=== PATIENT | female | born 1930 | race Two or more races ===

== ENCOUNTER 2017-11-17 10:39 | Inpatient (IN) | payer MEDICAID, MEDICARE ==
[~2017-11-17] VITALS: Ht 154.9 cm; Wt 68.0 kg
[~2017-11-17 10:39] MED LIST: CEPH500C PO; FERR325T14 PO; HYDR-2758 PO; PRED-220 PO; WARF-78 PO
[2017-11-17] MEDS ORDERED: IV NORMAL SALINE 1000ML BAG 1,000 ML IV ONE ×2 (11:00→13:00)
[2017-11-17] MEDS ORDERED: PANTOPRAZOLE IV PUSH 40 MG VIAL. IVP ONE (11:00)
[2017-11-17] MEDS ORDERED: DICYCLOMINE HCL 10 MG CAPSULE PO ONE (11:00)
[2017-11-17] MEDS ORDERED: ONDANSETRON PF 4 MG/2 ML VIAL. IV ONE (11:00)
[2017-11-17 11:26] LABS: BASO % 0 % (0-3); EOS % 0 % (0-3); HEMATOCRIT 46.4 % (36.0-47.0); LYMPH # 0.6 x10^3/uL (1.0-4.8); LYMPH % 12 % (24-48); MEAN CORPUSCULAR HEMOGLOBIN 31 pg (25-35); MEAN CORPUSCULAR HGB CONC 34 g/dL (31-37); MEAN CORPUSCULAR VOLUME 90 fL (79-100); MONO # 0.6 x10^3/uL (0.0-1.1); MONO % 12 % (0-9); NEUT # 3.8 x10^3uL (1.8-7.7); NEUT % 76 % (31-73); PLATELET COUNT 286 x10^3/uL (140-400); RED BLOOD COUNT 5.13 x10^6/uL (3.50-5.40); RED CELL DISTRIBUTION WIDTH 15.6 % (11.5-14.5)
[2017-11-17 11:28] LABS: BILIRUBIN,URINE SMALL (NEG); CLARITY,URINE CLEAR; COLOR,URINE AMBER; NITRITE,URINE POSITIVE (NEG); PH,URINE 5.5; PROTEIN,URINE 100 mg/dL (NEG-TRACE); UROBILINOGEN,URINE 0.2 mg/dL (0.2 mg/dL)
[2017-11-17 11:34] LABS: CALCIUM 10.1 mg/dL (8.5-10.1); CREATININE 1.5 mg/dL (0.6-1.0); GFR 32.8
[2017-11-17 11:34] LABS: BARBITURATES NEG (NEG); BENZODIAZEPINES NEG (NEG); CANNABINOIDS NEG (NEG); COCAINE NEG (NEG); METHADONE NEG (NEG); OPIATES NEG (NEG); PHENCYCLIDINE NEG (NEG)
[2017-11-17 11:35] LABS: AMPHETAMINE/METHAMPHETAMINE NEG (NEG)
[2017-11-17 11:36] LABS: SQUAMOUS EPITHELIAL CELL,UR OCC /LPF
[2017-11-17 11:37] LABS: BACTERIA,URINE MANY /HPF (0-FEW); WBC,URINE OCC /HPF (0-4)
--- NOTE | 2017-11-17 11:39 | PHYS DOC ---
Past Medical History Past Medical History: Heart Disease, [place], Other Additional Past Medical Histor: Rheumatoid arthritis Past Surgical History: Hysterectomy, Other Additional Past Surgical Histo: bladder lift Alcohol Use: None Drug Use: None Adult General Chief Complaint Chief Complaint: NAUSEA/VOMITING/DIARRHA HPI HPI Patient is a 87 year old female with history of [place], heart disease, who presents today complaining of generalized 8 out of 10 intermittent abdominal pain described as cramping with nausea and vomiting for 5 days. Patient denies any fever. Denies any hematemesis or melena. Denies any diarrhea. Last bowel movement was today and normal. Family is present and states this patient receives a lot of cooked meals from family and friends but she never stools the meals in the appropriate ways, family believes she could've eaten bad food. PCP Dr. Hassan Review of Systems Review of Systems Constitutional: Denies fever or chills [] Eyes: Denies change in visual acuity, redness, or eye pain [] HENT: Denies nasal congestion or sore throat [] Respiratory: Denies cough or shortness of breath [] Cardiovascular: No additional information not addressed in HPI [] GI: Reports generalized abdominal pain with nausea and vomiting, denies, bloody stools or diarrhea [] : Denies dysuria or hematuria [] Musculoskeletal: Denies back pain or joint pain [] Integument: Denies rash or skin lesions [] Neurologic: Denies headache, focal weakness or sensory changes [] All other systems were reviewed and found to be within normal limits, except as documented in this note. Current Medications Current Medications Current Medications Medications (Trade) Dose Ordered Sig/Willard Start Time Stop Time Status Last Admin Dose Admin Ceftriaxone Sodium 50 ml @ 100 mls/hr 1X ONCE 11/17/17 12:00 11/17/17 12:29 DC 11/17/17 12:03 100 MLS/HR Dicyclomine HCl (Bentyl) 20 mg 1X ONCE 11/17/17 11:00 11/17/17 11:02 DC 11/17/17 11:56 20 MG Ondansetron HCl (Zofran) 4 mg 1X ONCE 11/17/17 11:00 11/17/17 11:02 DC 11/17/17 11:53 4 MG Pantoprazole Sodium (PROTONIX VIAL for IV PUSH) 40 mg 1X ONCE 11/17/17 11:00 11/17/17 11:02 DC 11/17/17 11:56 40 MG Sodium Chloride 1,000 ml @ 1,000 mls/hr 1X ONCE 11/17/17 11:00 11/17/17 11:59 DC 11/17/17 11:51 1,000 MLS/HR Allergies Allergies Allergies Coded Allergies Type Severity Reaction Last Updated Verified celecoxib Allergy Severe Hives 05/13/13 Yes Sulfa (Sulfonamide Antibiotics) Allergy Intermediate Rash 05/22/14 Yes Physical Exam Physical Exam Constitutional: Well developed, well nourished, no acute distress, non-toxic appearance. [] HENT: Normocephalic, atraumatic, bilateral external ears normal, oropharynx moist, no oral exudates, nose normal. [] Eyes: PERRLA, EOMI, conjunctiva normal, no discharge. [] Neck: Normal range of motion, no tenderness, supple, no stridor. [] Cardiovascular:Heart rate regular rhythm, no murmur [] Lungs & Thorax: Bilateral breath sounds clear to auscultation [] Abdomen: Bowel sounds normal, soft, diffuse tenderness throughout the abdomen, no specific point tenderness, no masses, no pulsatile masses. [] Skin: Warm, dry, no erythema, no rash. [] Back: No tenderness, no CVA tenderness. [] Extremities: No tenderness, no cyanosis, no clubbing, ROM intact, no edema. [] Neurologic: Alert and oriented X 3, normal motor function, normal sensory function, no focal deficits noted. [] Psychologic: Affect normal, judgement normal, mood normal. [] Current Patient Data Vital Signs Vital Signs Date Time Temp Pulse Resp B/P (MAP) Pulse Ox O2 Delivery O2 Flow Rate FiO2 11/17/17 10:42 97.8 100 18 113/77 (89) 98 Room Air 97.8 Lab Values Laboratory Tests Test 11/17/17 11:00 11/17/17 11:10 White Blood Count 5.0 x10^3/uL (4.0-11.0) Red Blood Count 5.13 x10^6/uL (3.50-5.40) Hemoglobin 16.0 g/dL (12.0-15.5) H Hematocrit 46.4 % (36.0-47.0) Mean Corpuscular Volume 90 fL (79-100) Mean Corpuscular Hemoglobin 31 pg (25-35) Mean Corpuscular Hemoglobin Concent 34 g/dL (31-37) Red Cell Distribution Width 15.6 % (11.5-14.5) H Platelet Count 286 x10^3/uL (140-400) Neutrophils (%) (Auto) 76 % (31-73) H Lymphocytes (%) (Auto) 12 % (24-48) L Monocytes (%) (Auto) 12 % (0-9) H Eosinophils (%) (Auto) 0 % (0-3) Basophils (%) (Auto) 0 % (0-3) Neutrophils # (Auto) 3.8 x10^3uL (1.8-7.7) Lymphocytes # (Auto) 0.6 x10^3/uL (1.0-4.8) L Monocytes # (Auto) 0.6 x10^3/uL (0.0-1.1) Eosinophils # (Auto) 0.0 x10^3/uL (0.0-0.7) Basophils # (Auto) 0.0 x10^3/uL (0.0-0.2) Sodium Level 134 mmol/L (136-145) L Potassium Level 4.0 mmol/L (3.5-5.1) Chloride Level 96 mmol/L (98-107) L Carbon Dioxide Level 24 mmol/L (21-32) Anion Gap 14 (6-14) Blood Urea Nitrogen 37 mg/dL (7-20) H Creatinine 1.5 mg/dL (0.6-1.0) H Estimated GFR (Cockcroft-Gault) 32.8 BUN/Creatinine Ratio 25 (6-20) H Glucose Level 126 mg/dL (70-99) H Calcium Level 10.1 mg/dL (8.5-10.1) Magnesium Level 2.4 mg/dL (1.8-2.4) Total Bilirubin 1.2 mg/dL (0.2-1.0) H Aspartate Amino Transferase (AST) 23 U/L (15-37) Alanine Aminotransferase (ALT) 16 U/L (14-59) Alkaline Phosphatase 122 U/L (46-116) H Creatine Kinase 61 U/L (26-192) Creatine Kinase MB (Mass) 1.7 ng/mL (0.0-3.6) Creatine Kinase MB Relative Index % (0-4) Troponin I Quantitative 0.198 ng/mL (0.000-0.055) GT-Iwy-D-Type Natriuretic Peptide 8692 pg/mL (0-449) H Total Protein 8.0 g/dL (6.4-8.2) Albumin 4.4 g/dL (3.4-5.0) Albumin/Globulin Ratio 1.2 (1.0-1.7) Lipase 159 U/L (73-393) Urine Collection Type U cath Urine Color Blanka Urine Clarity Clear Urine pH 5.5 Urine Specific [place] 1.020 Urine Protein 100 mg/dL (NEG-TRACE) Urine Glucose (UA) Negative mg/dL (NEG) Urine Ketones (Stick) 15 mg/dL (NEG) Urine Blood Moderate (NEG) Urine Nitrite Positive (NEG) Urine Bilirubin Small (NEG) Urine Urobilinogen Dipstick 0.2 mg/dL (0.2 mg/dL) Urine Leukocyte Esterase Negative (NEG) Urine RBC 1-2 /HPF (0-2) Urine WBC Occ /HPF (0-4) Urine Squamous Epithelial Cells Occ /LPF Urine Bacteria Many /HPF (0-FEW) Urine Opiates Screen Neg (NEG) Urine Methadone Screen Neg (NEG) Urine Barbiturates Neg (NEG) Urine Phencyclidine Screen Neg (NEG) Urine Amphetamine/Methamphetamine Neg (NEG) Urine Benzodiazepines Screen Neg (NEG) Urine Cocaine Screen Neg (NEG) Urine Cannabinoids Screen Neg (NEG) Urine Ethyl Alcohol Neg (NEG) Laboratory Tests 11/17/17 11:00 Laboratory Tests 11/17/17 11:00 EKG EKG 11:[address] Milan sinus rhythm HR 89 no STEMI[] Radiology/Procedures Radiology/Procedures []PROCEDURE: ACUTE ABDOMEN SERIES EXAM: Frontal view of the chest, AP views of the abdomen in upright and supine positions. CLINICAL INDICATION: N,V,D X3 DAYS. OVERALL WEAKNESS COMPARISON: None. FINDINGS and IMPRESSION: The heart is not enlarged. Mediastinal and hilar contours are normal. No focal parenchymal airspace opacity. No pleural effusion or pneumothorax. Hiatal hernia is seen. Advanced bilateral glenohumeral joint degenerative change. Dilation of the small bowel measures up to 4.8 cm which may be seen with small bowel obstruction. Scattered pelvic surgical clips are seen. No abnormal soft tissue mass effect. No suspicious calcifications are seen. No free intraperitoneal gas. Electronically signed by: Gabe Schwarz MD (11/17/2017 12:07 PM) [facility] DICTATED and SIGNED BY: GABE SCHWARZ MD DATE: 11/17/17 1208 Course & Med Decision Making Course & Med Decision Making Pertinent Labs and Imaging studies reviewed. (See chart for details) This is a 87-year-old female patient presented to the ED today with abdominal pain, nausea vomiting that began 5 days ago. CBC with normal WBC, CMP with creatinine of 1.5 BUN of 37 troponin 0.198, + UTI 12:[address] Brice concerning patient's elevated troponin. Her troponin has been elevated since 2013 and family states they just monitor it. EKG is normal. Acute abdominal series noted for SBO 12:[address] Dejesus general surgery he will f/u with patient 12:[address] Hassan he accepted patient for admission Patient has not vomited since arrival to the Ed. NG tube placed. Admitted in stable condition. Dragon Disclaimer Dragon Disclaimer This electronic medical record was generated, in whole or in part, using a voice recognition dictation system. Departure Departure Impression: Primary Impression: Small bowel obstruction Additional Impressions: Non-ST elevation myocardial infarction (NSTEMI) UTI (urinary tract infection) Disposition: ADMITTED INPATIENT Condition: STABLE Referrals: WANDA HASSAN MD (PCP) Problem Qualifiers Additional Impressions: UTI (urinary tract infection) Urinary tract infection type: site unspecified Hematuria presence: without hematuria Qualified Codes: N39.0 - Urinary tract infection, site not specified MAEVE RICKS REVIVAL CLERK Nov 17, 2017 11:39
[2017-11-17 11:43] LABS: ALBUMIN 4.4 g/dL (3.4-5.0); ALBUMIN/GLOBULIN RATIO 1.2 (1.0-1.7); MAGNESIUM 2.4 mg/dL (1.8-2.4); TOTAL BILIRUBIN 1.2 mg/dL (0.2-1.0)
[2017-11-17 11:48] LABS: CREATINE KINASE 61 U/L (26-192)
--- NOTE | 2017-11-17 12:10 | RAD ---
EXAM: Frontal view of the chest, AP views of the abdomen in upright and supine positions. CLINICAL INDICATION: N,V,D X3 DAYS. OVERALL WEAKNESS COMPARISON: None. FINDINGS and IMPRESSION: The heart is not enlarged. Mediastinal and hilar contours are normal. No focal parenchymal airspace opacity. No pleural effusion or pneumothorax. Hiatal hernia is seen. Advanced bilateral glenohumeral joint degenerative change. Dilation of the small bowel measures up to 4.8 cm which may be seen with small bowel obstruction. Scattered pelvic surgical clips are seen. No abnormal soft tissue mass effect. No suspicious calcifications are seen. No free intraperitoneal gas. Electronically signed by: Gabe Chaudhry MD (11/17/2017 12:07 PM) [facility]
--- NOTE | 2017-11-17 12:12 | EKG ---
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
--- NOTE | 2017-11-17 12:13 | RAD ---
EXAM: AP pelvis, AP and crosstable lateral views of the left hip DATE: 11/17/2017 11:43 AM INDICATION: LEFT HIP PAIN X1 MONTH AFTER FALL COMPARISON: No Prior FINDINGS/ IMPRESSION: No evidence of acute fracture or dislocation. Decreased bone mineral density. Mild medial left hip joint space narrowing. Right hip joint osteoarthritis with flattening/remodeling of the femoral head Surgical clips project over the pelvis. Lower lumbar spine degenerative changes are noted. Electronically signed by: Gabe Chaudhry MD (11/17/2017 12:09 PM) [facility] [place]
[2017-11-17] MEDS ORDERED: ONDANSETRON PF 4 MG/2 ML VIAL. IV PRN (13:00)
[2017-11-17] MEDS ORDERED: BENZOCAINE ONE 20% MUCOSAL SPRAY. MM ×2 (13:15→16:00)
--- NOTE | 2017-11-17 13:22 | RAD ---
EXAM: CT Abdomen and Pelvis without IV contrast CLINICAL HISTORY: nausea, vomiting. possible SBO on prior radiograph COMPARISON: Radiographs 11/17/2017 TECHNIQUE: Helical CT of the abdomen and pelvis without intravenous contrast. Oral contrast was administered. Axial, coronal and sagittal reformatted images were generated. PQRS compliance statement - One or more of the following individualized dose reduction techniques were utilized for this study: 1. Automated exposure control 2. Adjustment of the mA and/or kV according to patient size 3. Use of iterative reconstruction technique FINDINGS: Lack of intravenous contrast limits evaluation of solid organs, vasculature, and lymph nodes. Lower chest: Lung bases are clear. Large hiatal hernia. Artery calcifications are seen. Abdomen and Pelvis: No focal liver lesion. Calcified gallstones are seen within the gallbladder. Spleen is unremarkable. Adrenal glands are normal. No definite renal lesion is seen. No hydronephrosis. No biliary ductal dilatation. There is aneurysmal dilatation of the infrarenal aorta measuring 4.2 cm. Atherosclerotic calcifications are seen. There is dilation of the small bowel measuring up to 3.8 cm. There is a transition point in the right lower quadrant beyond which the small bowel is decompressed. Mild colonic stool content. No abdominal or pelvic ascites. No abdominal or pelvic lymphadenopathy. There has been a hysterectomy. There is distention of the right iliopsoas bursa with small right hip joint effusion. Fatty atrophy of the left gluteus medius minimus and medius. Bones: Right hip joint osteoarthritis. Decreased bone mineral density. Degenerative changes of the lower lumbar spine are seen. IMPRESSION: 1. Small bowel obstruction to a transition point in the distal small bowel within the right lower quadrant. 2. Aneurysmal dilatation of the infrarenal abdominal aorta. 3. Calcified gallstones are seen. 4. Large hiatal hernia. Electronically signed by: Gabe Chaudhry MD (11/17/2017 1:18 PM) [facility]
[2017-11-17] MEDS: MORPHINE SULFATE 4 MG/ML VIAL. IV PRN ×2 (13:23→21:43)
--- NOTE | 2017-11-17 14:17 | RAD ---
EXAM: Supine AP view of the abdomen DATE: 11/17/2017 2:00 PM INDICATION: VERIFY NG TUBE COMPARISON: No Prior FINDINGS: The enteric tube tip is seen at the level of the mid thorax. This is approximately 16 cm from the gastroesophageal junction. Dilated loops of small bowel are seen. Hiatal hernia is seen. Dilated loops of small bowel are again seen, better delineated on prior CT. IMPRESSION: 1. NG tube tip projects at the level of the mid thorax. 2. Dilated small bowel loops from known small bowel obstruction. Electronically signed by: Gabe Chaudhry MD (11/17/2017 2:14 PM) [facility]
[2017-11-17 15:00] VITALS: BP 137/79
[2017-11-17 19:00] VITALS: BP 106/58
--- NOTE | 2017-11-17 21:26 | RAD ---
Indication: NG tube placement. TECHNIQUE: Single AP upright view of the abdomen COMPARISON: Study from the same day earlier FINDINGS: Large sliding hiatal hernia. Heart is normal in size. Interval placement of NG tube with its tip in the herniated stomach likely in the distal stomach although this remains above the level of diaphragm. Multiple dilated loops of small bowel in the left upper quadrant. Lungs are clear. No evidence of pneumoperitoneum. Mild scoliotic thoracal lumbar spine. IMPRESSION: 1. NG tube with its tip most likely in the distal aspect of the herniated stomach although the tip remains above the level of diaphragm. The NG tube is not follow-up the course of the left mainstem bronchus to suggest intrabronchial placement. Further advancement recommended. 2. Dilated loops of small bowel in the left upper quadrant suggests ileus or obstruction.. Electronically signed by: Kun Leos DO (11/17/2017 9:22 PM) [facility]
[2017-11-17 23:00] VITALS: BP 104/55
[2017-11-18] VITALS (8 sets, daily range): BP systolic 126–193; BP diastolic 76–100
[2017-11-18] MEDS: MORPHINE SULFATE 4 MG/ML VIAL. IV PRN (02:31)
[2017-11-18 05:42] LABS: BASO % 1 % (0-3); EOS % 1 % (0-3); HEMOGLOBIN 13.8 g/dL (12.0-15.5); LYMPH # 0.4 x10^3/uL (1.0-4.8); LYMPH % 13 % (24-48); MEAN CORPUSCULAR HEMOGLOBIN 31 pg (25-35); MEAN CORPUSCULAR HGB CONC 34 g/dL (31-37); MEAN CORPUSCULAR VOLUME 93 fL (79-100); MONO # 0.4 x10^3/uL (0.0-1.1); MONO % 12 % (0-9); NEUT # 2.5 x10^3uL (1.8-7.7); NEUT % 73 % (31-73); PLATELET COUNT 216 x10^3/uL (140-400); RED BLOOD COUNT 4.43 x10^6/uL (3.50-5.40); RED CELL DISTRIBUTION WIDTH 16.4 % (11.5-14.5); WHITE BLOOD COUNT 3.4 x10^3/uL (4.0-11.0)
[2017-11-18 06:07] LABS: ALBUMIN 3.3 g/dL (3.4-5.0); CALCIUM 8.3 mg/dL (8.5-10.1); GFR 23.5; POTASSIUM 3.7 mmol/L (3.5-5.1); TOTAL BILIRUBIN 0.7 mg/dL (0.2-1.0); TOTAL PROTEIN 6.5 g/dL (6.4-8.2)
[2017-11-18 07:47] LABS: % BANDS 29 % (0-9); % LYMPHS 18 % (24-48); % MONOS 12 % (0-10); % MYELOS 1 % (0-0); PLT ESTIMATE ADEQUATE (ADEQUATE)
[2017-11-18 07:48] LABS: % SEGS 40 % (35-66); ANISOCYTOSIS SLIGHT; OVALOCYTES FEW
[2017-11-18] MEDS ORDERED: IOHEXOL 300 MG/ML 100ML VIAL. PO ONE (08:15)
[2017-11-18] MEDS ORDERED: CONTRAST GIVEN. MC PRN (08:15)
--- NOTE | 2017-11-18 08:26 | PDOC2 ---
THIEN MENJIVAR INCLUSION MANAGER 11/18/17 0826: CONSULT Date of Consult Date of Consult DATE: 11/18/17 TIME: 08:22 Reason for Consult Reason for Consult: sbo Referring Physician Referring Physician: er Identification/Chief Complaint Chief Complaint abdominal pain Source Source: Chart review, Patient History of Present Illness Reason for Visit: 1 week hx of abdominal pain, nausea and emesis. + constipation. Pain is across lower abdomen. Reports no flatus today Past Medical History Cardiovascular: CAD, ID CENTRAL NERVOUS SYSTEM: Other Musculoskeletal: Other Rheumatologic: Rheumatoid arthritis Past Surgical History Past Surgical History: Cholecystectomy, Hysterectomy, Other (bladder lift) Family History Family History: Coronary Artery Disease, Other (noncontributory ) Social History No ALCOHOL: none Drugs: None Lives: Alone Current Problem List Problem List Problems Medical Problems: (1) Non-ST elevation myocardial infarction (NSTEMI) Status: Acute (2) UTI (urinary tract infection) Status: Acute Current Medications Current Medications Current Medications Dicyclomine HCl (Bentyl) 20 mg 1X ONCE PO Last administered on 11/17/17at 11:56 ; Start 11/17/17 at 11:00; Stop 11/17/17 at 11:02; Status DC Pantoprazole Sodium (PROTONIX VIAL for IV PUSH) 40 mg 1X ONCE IVP Last administered on 11/17/17at 11:56; Start 11/17/17 at 11:00; Stop 11/17/17 at 11:02; Status DC Sodium Chloride 1,000 ml @ 1,000 mls/hr 1X ONCE IV Last administered on at 11:51; Start 11/17/17 at 11:00; Stop 11/17/17 at 11:59; Status DC Ondansetron HCl (Zofran) 4 mg 1X ONCE IV Last administered on 11/17/17at 11:53; Start 11/17/17 at 11:00; Stop 11/17/17 at 11:02; Status DC Ceftriaxone Sodium 50 ml @ 100 mls/hr 1X ONCE IV Last administered on at 12:03; Start 11/17/17 at 12:00; Stop 11/17/17 at 12:29; Status DC Ondansetron HCl (Zofran) 4 mg PRN Q8HRS PRN IV NAUSEA/VOMITING; Start 11/17/17 at 13:00; Stop 11/18/17 at 12:59 Morphine Sulfate (Morphine Sulfate) 4 mg PRN Q2HR PRN IV PAIN Last administered on 11/18/17at 02:31; Start 11/17/17 at 13:00; Stop 11/18/17 at 12:59 Sodium Chloride 1,000 ml @ 75 mls/hr 1X ONCE IV Last administered on at 15:51; Start 11/17/17 at 13:00; Stop 11/18/17 at 02:19; Status DC Prochlorperazine Edisylate (Compazine) 10 mg PRN TID PRN IV NAUSEA; Start at 13:00 Benzocaine (Hurricaine One) 1 spray 1X ONCE MM Last administered on 11/17/17at 13:19; Start 11/17/17 at 13:15; Stop 11/17/17 at 13:16; Status DC Benzocaine (Hurricaine One) 1 spray 1X ONCE MM Last administered on 11/17/17at 16:23; Start 11/17/17 at 16:00; Stop 11/17/17 at 16:01; Status DC Iohexol (Omnipaque 300 Mg/ml) 400 ml 1X ONCE PO ; Start 11/18/17 at 08:15; Stop 11/18/17 at 08:16; Status DC Info (CONTRAST GIVEN -- Rx MONITORING) 1 each PRN DAILY PRN MC SEE COMMENTS; Start 11/18/17 at 08:15; Stop 11/20/17 at 08:14 Active Scripts Active Allergies Allergies: Coded Allergies: celecoxib (Verified Allergy, Severe, Hives, 05/13/13) Pt stated she got red hives upon taking this medication Sulfa (Sulfonamide Antibiotics) (Verified Allergy, Intermediate, Rash, ) ROS General: No: Chills, Other (fevers) PSYCHOLOGICAL ROS: No: Anxiety, Depression Eyes: No Blurry vision, No Double vision HEENT: No: Heacaches, Sore Throat Hematological and Lymphatic: No: Bleeding Problems, Blood Clots Respiratory: No: Cough, Shortness of breath Cardiovascular: No Chest Pain, No Palpitations Gastrointestinal: Yes Other (see hpi) Genitourinary: No Dysuria, No Hematuria Musculoskeletal: No Joint Pain, No Muscle Pain Neurological: No Confusion, No Impaired Coord/balance Skin: Yes Rash; No Pruritus Physical Exam General: Alert, Oriented X3, Cooperative, No acute distress HEENT: PERRLA, Mucous membr. moist/pink Lungs: Clear to auscultation, Normal air movement Heart: Regular rate, Normal S1, Normal S2, No murmurs Abdomen: Soft, Other (TTP lower abdomen, low pelvic scar noted ) Extremities: No clubbing, No cyanosis Skin: No rashes, No breakdown Neuro: Normal speech, Sensation intact Psych/Mental Status: Mental status NL, Mood NL MUSCULOSKELETAL: No deformity, No swelling Vitals VITALS Vital Signs Date Time Temp Pulse Resp B/P (MAP) Pulse Ox O2 Delivery O2 Flow Rate FiO2 11/18/17 07:00 97.7 82 18 126/77 (93) 92 Room Air 97.7 Labs Labs Laboratory Tests Test 11/17/17 11:00 11/17/17 11:10 11/17/17 13:05 11/18/17 03:47 White Blood Count 5.0 x10^3/uL (4.0-11.0) 3.4 x10^3/uL (4.0-11.0) Red Blood Count 5.13 x10^6/uL (3.50-5.40) 4.43 x10^6/uL (3.50-5.40) Hemoglobin 16.0 g/dL (12.0-15.5) 13.8 g/dL (12.0-15.5) Hematocrit 46.4 % (36.0-47.0) 41.0 % (36.0-47.0) Mean Corpuscular Volume 90 fL (79-100) 93 fL (79-100) Mean Corpuscular Hemoglobin 31 pg (25-35) 31 pg (25-35) Mean Corpuscular Hemoglobin Concent 34 g/dL (31-37) 34 g/dL (31-37) Red Cell Distribution Width 15.6 % (11.5-14.5) 16.4 % (11.5-14.5) Platelet Count 286 x10^3/uL (140-400) 216 x10^3/uL (140-400) Neutrophils (%) (Auto) 76 % (31-73) 73 % (31-73) Lymphocytes (%) (Auto) 12 % (24-48) 13 % (24-48) Monocytes (%) (Auto) 12 % (0-9) 12 % (0-9) Eosinophils (%) (Auto) 0 % (0-3) 1 % (0-3) Basophils (%) (Auto) 0 % (0-3) 1 % (0-3) Neutrophils # (Auto) 3.8 x10^3uL (1.8-7.7) 2.5 x10^3uL (1.8-7.7) Lymphocytes # (Auto) 0.6 x10^3/uL (1.0-4.8) 0.4 x10^3/uL (1.0-4.8) Monocytes # (Auto) 0.6 x10^3/uL (0.0-1.1) 0.4 x10^3/uL (0.0-1.1) Eosinophils # (Auto) 0.0 x10^3/uL (0.0-0.7) 0.0 x10^3/uL (0.0-0.7) Basophils # (Auto) 0.0 x10^3/uL (0.0-0.2) 0.0 x10^3/uL (0.0-0.2) Sodium Level 134 mmol/L (136-145) 137 mmol/L (136-145) Potassium Level 4.0 mmol/L (3.5-5.1) 3.7 mmol/L (3.5-5.1) Chloride Level 96 mmol/L (98-107) 102 mmol/L (98-107) Carbon Dioxide Level 24 mmol/L (21-32) 25 mmol/L (21-32) Anion Gap 14 (6-14) 10 (6-14) Blood Urea Nitrogen 37 mg/dL (7-20) 45 mg/dL (7-20) Creatinine 1.5 mg/dL (0.6-1.0) 2.0 mg/dL (0.6-1.0) Estimated GFR (Cockcroft-Gault) 32.8 23.5 BUN/Creatinine Ratio 25 (6-20) 23 (6-20) Glucose Level 126 mg/dL (70-99) 88 mg/dL (70-99) Calcium Level 10.1 mg/dL (8.5-10.1) 8.3 mg/dL (8.5-10.1) Magnesium Level 2.4 mg/dL (1.8-2.4) Total Bilirubin 1.2 mg/dL (0.2-1.0) 0.7 mg/dL (0.2-1.0) Aspartate Amino Transf (AST/SGOT) 23 U/L (15-37) 19 U/L (15-37) Alanine Aminotransferase (ALT/SGPT) 16 U/L (14-59) 14 U/L (14-59) Alkaline Phosphatase 122 U/L (46-116) 93 U/L (46-116) Creatine Kinase 61 U/L (26-192) Creatine Kinase MB (Mass) 1.7 ng/mL (0.0-3.6) Creatine Kinase MB Relative Index % (0-4) Troponin I Quantitative 0.198 ng/mL (0.000-0.055) PN-Omg-G-Type Natriuretic Peptide 8692 pg/mL (0-449) Total Protein 8.0 g/dL (6.4-8.2) 6.5 g/dL (6.4-8.2) Albumin 4.4 g/dL (3.4-5.0) 3.3 g/dL (3.4-5.0) Albumin/Globulin Ratio 1.2 (1.0-1.7) 1.0 (1.0-1.7) Lipase 159 U/L (73-393) Urine Collection Type U cath Urine Color Blanka Urine Clarity Clear Urine pH 5.5 Urine Specific [place] 1.020 Urine Protein 100 mg/dL (NEG-TRACE) Urine Glucose (UA) Negative mg/dL (NEG) Urine Ketones (Stick) 15 mg/dL (NEG) Urine Blood Moderate (NEG) Urine Nitrite Positive (NEG) Urine Bilirubin Small (NEG) Urine Urobilinogen Dipstick 0.2 mg/dL (0.2 mg/dL) Urine Leukocyte Esterase Negative (NEG) Urine RBC 1-2 /HPF (0-2) Urine WBC Occ /HPF (0-4) Urine Squamous Epithelial Cells Occ /LPF Urine Bacteria Many /HPF (0-FEW) Urine Opiates Screen Neg (NEG) Urine Methadone Screen Neg (NEG) Urine Barbiturates Neg (NEG) Urine Phencyclidine Screen Neg (NEG) Urine Amphetamine/Methamphetamine Neg (NEG) Urine Benzodiazepines Screen Neg (NEG) Urine Cocaine Screen Neg (NEG) Urine Cannabinoids Screen Neg (NEG) Urine Ethyl Alcohol Neg (NEG) Lactic Acid Level 1.8 mmol/L (0.4-2.0) Segmented Neutrophils % 40 % (35-66) Band Neutrophils % 29 % (0-9) Lymphocytes % 18 % (24-48) Monocytes % 12 % (0-10) Myelocytes % 1 % (0-0) Platelet Estimate Adequate (ADEQUATE) Anisocytosis Slight Ovalocytes Few Laboratory Tests Test 11/17/17 11:00 11/17/17 11:10 11/17/17 13:05 11/18/17 03:47 White Blood Count 5.0 x10^3/uL (4.0-11.0) 3.4 x10^3/uL (4.0-11.0) Red Blood Count 5.13 x10^6/uL (3.50-5.40) 4.43 x10^6/uL (3.50-5.40) Hemoglobin 16.0 g/dL (12.0-15.5) 13.8 g/dL (12.0-15.5) Hematocrit 46.4 % (36.0-47.0) 41.0 % (36.0-47.0) Mean Corpuscular Volume 90 fL (79-100) 93 fL (79-100) Mean Corpuscular Hemoglobin 31 pg (25-35) 31 pg (25-35) Mean Corpuscular Hemoglobin Concent 34 g/dL (31-37) 34 g/dL (31-37) Red Cell Distribution Width 15.6 % (11.5-14.5) 16.4 % (11.5-14.5) Platelet Count 286 x10^3/uL (140-400) 216 x10^3/uL (140-400) Neutrophils (%) (Auto) 76 % (31-73) 73 % (31-73) Lymphocytes (%) (Auto) 12 % (24-48) 13 % (24-48) Monocytes (%) (Auto) 12 % (0-9) 12 % (0-9) Eosinophils (%) (Auto) 0 % (0-3) 1 % (0-3) Basophils (%) (Auto) 0 % (0-3) 1 % (0-3) Neutrophils # (Auto) 3.8 x10^3uL (1.8-7.7) 2.5 x10^3uL (1.8-7.7) Lymphocytes # (Auto) 0.6 x10^3/uL (1.0-4.8) 0.4 x10^3/uL (1.0-4.8) Monocytes # (Auto) 0.6 x10^3/uL (0.0-1.1) 0.4 x10^3/uL (0.0-1.1) Eosinophils # (Auto) 0.0 x10^3/uL (0.0-0.7) 0.0 x10^3/uL (0.0-0.7) Basophils # (Auto) 0.0 x10^3/uL (0.0-0.2) 0.0 x10^3/uL (0.0-0.2) Sodium Level 134 mmol/L (136-145) 137 mmol/L (136-145) Potassium Level 4.0 mmol/L (3.5-5.1) 3.7 mmol/L (3.5-5.1) Chloride Level 96 mmol/L (98-107) 102 mmol/L (98-107) Carbon Dioxide Level 24 mmol/L (21-32) 25 mmol/L (21-32) Anion Gap 14 (6-14) 10 (6-14) Blood Urea Nitrogen 37 mg/dL (7-20) 45 mg/dL (7-20) Creatinine 1.5 mg/dL (0.6-1.0) 2.0 mg/dL (0.6-1.0) Estimated GFR (Cockcroft-Gault) 32.8 23.5 BUN/Creatinine Ratio 25 (6-20) 23 (6-20) Glucose Level 126 mg/dL (70-99) 88 mg/dL (70-99) Calcium Level 10.1 mg/dL (8.5-10.1) 8.3 mg/dL (8.5-10.1) Magnesium Level 2.4 mg/dL (1.8-2.4) Total Bilirubin 1.2 mg/dL (0.2-1.0) 0.7 mg/dL (0.2-1.0) Aspartate Amino Transf (AST/SGOT) 23 U/L (15-37) 19 U/L (15-37) Alanine Aminotransferase (ALT/SGPT) 16 U/L (14-59) 14 U/L (14-59) Alkaline Phosphatase 122 U/L (46-116) 93 U/L (46-116) Creatine Kinase 61 U/L (26-192) Creatine Kinase MB (Mass) 1.7 ng/mL (0.0-3.6) Creatine Kinase MB Relative Index % (0-4) Troponin I Quantitative 0.198 ng/mL (0.000-0.055) AC-Wtg-X-Type Natriuretic Peptide 8692 pg/mL (0-449) Total Protein 8.0 g/dL (6.4-8.2) 6.5 g/dL (6.4-8.2) Albumin 4.4 g/dL (3.4-5.0) 3.3 g/dL (3.4-5.0) Albumin/Globulin Ratio 1.2 (1.0-1.7) 1.0 (1.0-1.7) Lipase 159 U/L (73-393) Urine Collection Type U cath Urine Color Blanka Urine Clarity Clear Urine pH 5.5 Urine Specific [place] 1.020 Urine Protein 100 mg/dL (NEG-TRACE) Urine Glucose (UA) Negative mg/dL (NEG) Urine Ketones (Stick) 15 mg/dL (NEG) Urine Blood Moderate (NEG) Urine Nitrite Positive (NEG) Urine Bilirubin Small (NEG) Urine Urobilinogen Dipstick 0.2 mg/dL (0.2 mg/dL) Urine Leukocyte Esterase Negative (NEG) Urine RBC 1-2 /HPF (0-2) Urine WBC Occ /HPF (0-4) Urine Squamous Epithelial Cells Occ /LPF Urine Bacteria Many /HPF (0-FEW) Urine Opiates Screen Neg (NEG) Urine Methadone Screen Neg (NEG) Urine Barbiturates Neg (NEG) Urine Phencyclidine Screen Neg (NEG) Urine Amphetamine/Methamphetamine Neg (NEG) Urine Benzodiazepines Screen Neg (NEG) Urine Cocaine Screen Neg (NEG) Urine Cannabinoids Screen Neg (NEG) Urine Ethyl Alcohol Neg (NEG) Lactic Acid Level 1.8 mmol/L (0.4-2.0) Segmented Neutrophils % 40 % (35-66) Band Neutrophils % 29 % (0-9) Lymphocytes % 18 % (24-48) Monocytes % 12 % (0-10) Myelocytes % 1 % (0-0) Platelet Estimate Adequate (ADEQUATE) Anisocytosis Slight Ovalocytes Few Assessment/Plan Assessment/Plan SBO plans for SBFT today, pt pulled out 2 NGs, has refused replacement TYREE ALVAREZ MD 11/18/17 1123: CONSULT Assessment/Plan Assessment/Plan Pt seen and evaluated by myself; 87 year old female with pain across mid and lower abdomen, now noted in left side. PMH/PSH/ROS/SH as above, exam: alert , oriented no distress, lungs clear, heart RR and R, abdomen soft, nondistended , reports mild pain in left side without guarding or peritoneal signs, ext neg for edema; labs and Xrays reviewed; A/P) SB dilation, ?SBO vs ileus; recommend SB series to further evaluate. THIEN MENJIVAR APRN Nov 18, 2017 08:26 TYREE ALVAREZ MD Nov 18, 2017 11:23
[2017-11-18] MEDS: LACTOBACILLUS RHAMNOSUS GG 1 CAPSULE. PO SCH ×2 (09:00→20:00)
--- NOTE | 2017-11-18 09:55 | HP ---
ADMIT DATE: 11/17/2017 CHIEF COMPLAINT AND HISTORY OF PRESENT ILLNESS: This is an 87-year-old female who is well known to me for followup in the office. The patient has had 8/10 abdominal pain with cramping and vomiting over the last 5 days, presented to the Emergency Room where she was found to have a small-bowel obstruction and be dehydrated and admitted for the same. PAST MEDICAL HISTORY: Remarkable for atherosclerotic heart disease with prior MN. She has a history of rheumatoid arthritis. She has had a prior bladder tie up as well as hysterectomy. MEDICATIONS: Brought with the patient, listed on the computer and have been addressed. ALLERGIES: SHE IS ALLERGIC TO SULFA AND CELEBREX. SOCIAL HISTORY: She is a nonsmoker, nondrinker, does not use drugs. FAMILY HISTORY: Noncontributory. REVIEW OF SYSTEMS: Remarkable for the abdominal pain, which she describes as crampy. She has her usual joint aches and pains, which are no different. PHYSICAL EXAMINATION: GENERAL: She is well-developed, well-nourished female, in no acute distress. VITAL SIGNS: Stable. She is afebrile. HEAD, EYES, EARS, NOSE AND THROAT: Unremarkable. NECK: Supple, without thyromegaly. CHEST: Clear to auscultation and percussion. HEART: Regular rate and rhythm without S3, S4 or murmur. ABDOMEN: Reveals predominantly lower abdominal tenderness, possibly a little more on the left than the right. She does have some rashes present on exam. EXTREMITIES: Without cyanosis, clubbing, edema. NEUROLOGIC: She is intact. CT scanning of the abdomen and pelvis does show a small-bowel obstruction in distal small bowel, predominantly in the right lower quadrant. She does have an infrarenal abdominal aortic aneurysm in addition on imaging. IMPRESSION: 1. Small-bowel obstruction. 2. Elevated troponin. 3. Possible urinary tract infection. PLAN: We will continue Rocephin started in the Emergency Room until urine cultures are back. At this point in time, she will be hydrated with bowel rest and hope that this obstruction itself resolving. She did have an NG placed in the Emergency Room, but she pulled it out when she got to the floor and has not been replaced as she prefer the same. She does not have any significant vomiting overnight and has not had any flatus. We will ask Cardiology for opinion on the elevated troponin and otherwise continue the same. WANDA ELY MD DR: MANISH/chinmay JOB#: [id number] / [id number]
[2017-11-18] MEDS: cefTRIAXone IV Push 1 GM VIAL. IVP SCH (12:05)
[2017-11-18] MEDS: PROCHLORPERAZINE 10 MG/2 ML VIAL. IV PRN (12:12)
[2017-11-18] MEDS: IV NORMAL SALINE 1000ML BAG 1,000 ML IV SCH ×2 (12:59→20:42)
--- NOTE | 2017-11-18 20:43 | PDOC2 ---
CONSULT Date of Consult Date of Consult DATE: 11/18/17 TIME: 20:32 Reason for Consult Reason for Consult: elevated troponins Referring Physician Referring Physician: Dr. Washburn Identification/Chief Complaint Chief Complaint nausea, vomiting and abdominal pain History of Present Illness Reason for Visit: Patient is an 87 y/o female with a known hx of HTN and previous abdominal surgery that came in with n/v and abdominal pain. Patient is unable to tolerate PO route. Patient seen by surgery for bowel obstruction undergoing work up . Her labs abnormal with an elevated BUN and Creatnine as well as elevated trops. No chest pain, dyspnea,palpitation. No ECG changes Past Medical History Cardiovascular: CAD, [place] CENTRAL NERVOUS SYSTEM: Other Musculoskeletal: Other Rheumatologic: Rheumatoid arthritis Past Surgical History Past Surgical History: Cholecystectomy, Hysterectomy, Other (bladder lift) Family History Family History: Coronary Artery Disease, Other (noncontributory ) Social History No ALCOHOL: none Drugs: None Lives: Alone Current Problem List Problem List Problems Medical Problems: (1) Non-ST elevation myocardial infarction (NSTEMI) Status: Acute (2) UTI (urinary tract infection) Status: Acute Current Medications Current Medications Current Medications Dicyclomine HCl (Bentyl) 20 mg 1X ONCE PO Last administered on 11/17/17at 11:56 ; Start 11/17/17 at 11:00; Stop 11/17/17 at 11:02; Status DC Pantoprazole Sodium (PROTONIX VIAL for IV PUSH) 40 mg 1X ONCE IVP Last administered on 11/17/17at 11:56; Start 11/17/17 at 11:00; Stop 11/17/17 at 11:02; Status DC Sodium Chloride 1,000 ml @ 1,000 mls/hr 1X ONCE IV Last administered on at 11:51; Start 11/17/17 at 11:00; Stop 11/17/17 at 11:59; Status DC Ondansetron HCl (Zofran) 4 mg 1X ONCE IV Last administered on 11/17/17at 11:53; Start 11/17/17 at 11:00; Stop 11/17/17 at 11:02; Status DC Ceftriaxone Sodium 50 ml @ 100 mls/hr 1X ONCE IV Last administered on at 12:03; Start 11/17/17 at 12:00; Stop 11/17/17 at 12:29; Status DC Ondansetron HCl (Zofran) 4 mg PRN Q8HRS PRN IV NAUSEA/VOMITING; Start 11/17/17 at 13:00; Stop 11/18/17 at 12:59; Status DC Morphine Sulfate (Morphine Sulfate) 4 mg PRN Q2HR PRN IV PAIN Last administered on 11/18/17at 02:31; Start 11/17/17 at 13:00; Stop 11/18/17 at 12:59 ; Status DC Sodium Chloride 1,000 ml @ 75 mls/hr 1X ONCE IV Last administered on at 15:51; Start 11/17/17 at 13:00; Stop 11/18/17 at 12:49; Status DC Prochlorperazine Edisylate (Compazine) 10 mg PRN TID PRN IV NAUSEA Last administered on 11/18/17at 12:12; Start 11/17/17 at 13:00 Benzocaine (Hurricaine One) 1 spray 1X ONCE MM Last administered on 11/17/17at 13:19; Start 11/17/17 at 13:15; Stop 11/17/17 at 13:16; Status DC Benzocaine (Hurricaine One) 1 spray 1X ONCE MM Last administered on 11/17/17at 16:23; Start 11/17/17 at 16:00; Stop 11/17/17 at 16:01; Status DC Iohexol (Omnipaque 300 Mg/ml) 400 ml 1X ONCE PO Last administered on at 09:33; Start 11/18/17 at 08:15; Stop 11/18/17 at 08:16; Status DC Info (CONTRAST GIVEN -- Rx MONITORING) 1 each PRN DAILY PRN MC SEE COMMENTS; Start 11/18/17 at 08:15; Stop 11/20/17 at 08:14 Ceftriaxone Sodium 1 gm/ Dextrose 50 ml @ 100 mls/hr Q24H IV ; Start 11/18/17 at 08:45; Status UNV Ceftriaxone Sodium (Rocephin) 1 gm Q24H IVP Last administered on 11/18/17at 12: 05; Start 11/18/17 at 09:00 Lactobacillus Rhamnosus (Culturelle) 1 cap BID PO ; Start 11/18/17 at 09:00 Sodium Chloride 1,000 ml @ 100 mls/hr Q10H IV ; Start 11/18/17 at 13:00 Ondansetron HCl (Zofran) 4 mg PRN Q6HRS PRN IV NAUSEA/VOMITING; Start 11/19/17 at 07:00; Stop 11/20/17 at 06:59 Fentanyl Citrate (Fentanyl 2ml Vial) 25 mcg PRN Q5MIN PRN IV MILD PAIN; Start 11/19/17 at 07:00; Stop 11/20/17 at 06:59 Fentanyl Citrate (Fentanyl 2ml Vial) 50 mcg PRN Q5MIN PRN IV MODERATE TO SEVERE PAIN; Start 11/19/17 at 07:00; Stop 11/20/17 at 06:59 Morphine Sulfate (Morphine Sulfate) 1 mg PRN Q10MIN PRN IV SEVERE PAIN; Start 11/19/17 at 07:00; Stop 11/20/17 at 06:59 Ringer's Solution 1,000 ml @ 30 mls/hr Q24H IV ; Start 11/19/17 at 07:00; Stop 11/19/17 at 18:59 Lidocaine HCl (Xylocaine-Mpf 1% 2ml Vial) 2 ml PRN 1X PRN ID PRIOR TO IV START ; Start 11/19/17 at 07:00; Stop 11/20/17 at 06:59 Hydromorphone HCl (Dilaudid) 0.5 mg PRN Q10MIN PRN IV SEV PAIN, Second choice; Start 11/19/17 at 07:00; Stop 11/20/17 at 06:59 Prochlorperazine Edisylate (Compazine) 5 mg PACU PRN PRN IV NAUSEA, MRX1; Start 11/19/17 at 07:00; Stop 11/20/17 at 06:59 Active Scripts Active Allergies Allergies: Coded Allergies: celecoxib (Verified Allergy, Severe, Hives, 05/13/13) Pt stated she got red hives upon taking this medication Sulfa (Sulfonamide Antibiotics) (Verified Allergy, Intermediate, Rash, ) Physical Exam General: Alert, Cooperative, moderate distress HEENT: PERRLA Lungs: Clear to auscultation Heart: Regular rate, Normal S1, Normal S2, Other Abdomen: Other (diffused tenderness bowel sounds increased ) Extremities: No edema Vitals VITALS Vital Signs Date Time Temp Pulse Resp B/P (MAP) Pulse Ox O2 Delivery O2 Flow Rate FiO2 11/18/17 19:05 Room Air 11/18/17 19:00 98.4 89 18 181/100 (127) 95 98.4 Labs Labs Laboratory Tests Test 11/17/17 11:00 11/17/17 11:10 11/17/17 13:05 11/18/17 03:47 White Blood Count 5.0 x10^3/uL (4.0-11.0) 3.4 x10^3/uL (4.0-11.0) Red Blood Count 5.13 x10^6/uL (3.50-5.40) 4.43 x10^6/uL (3.50-5.40) Hemoglobin 16.0 g/dL (12.0-15.5) 13.8 g/dL (12.0-15.5) Hematocrit 46.4 % (36.0-47.0) 41.0 % (36.0-47.0) Mean Corpuscular Volume 90 fL (79-100) 93 fL (79-100) Mean Corpuscular Hemoglobin 31 pg (25-35) 31 pg (25-35) Mean Corpuscular Hemoglobin Concent 34 g/dL (31-37) 34 g/dL (31-37) Red Cell Distribution Width 15.6 % (11.5-14.5) 16.4 % (11.5-14.5) Platelet Count 286 x10^3/uL (140-400) 216 x10^3/uL (140-400) Neutrophils (%) (Auto) 76 % (31-73) 73 % (31-73) Lymphocytes (%) (Auto) 12 % (24-48) 13 % (24-48) Monocytes (%) (Auto) 12 % (0-9) 12 % (0-9) Eosinophils (%) (Auto) 0 % (0-3) 1 % (0-3) Basophils (%) (Auto) 0 % (0-3) 1 % (0-3) Neutrophils # (Auto) 3.8 x10^3uL (1.8-7.7) 2.5 x10^3uL (1.8-7.7) Lymphocytes # (Auto) 0.6 x10^3/uL (1.0-4.8) 0.4 x10^3/uL (1.0-4.8) Monocytes # (Auto) 0.6 x10^3/uL (0.0-1.1) 0.4 x10^3/uL (0.0-1.1) Eosinophils # (Auto) 0.0 x10^3/uL (0.0-0.7) 0.0 x10^3/uL (0.0-0.7) Basophils # (Auto) 0.0 x10^3/uL (0.0-0.2) 0.0 x10^3/uL (0.0-0.2) Sodium Level 134 mmol/L (136-145) 137 mmol/L (136-145) Potassium Level 4.0 mmol/L (3.5-5.1) 3.7 mmol/L (3.5-5.1) Chloride Level 96 mmol/L (98-107) 102 mmol/L (98-107) Carbon Dioxide Level 24 mmol/L (21-32) 25 mmol/L (21-32) Anion Gap 14 (6-14) 10 (6-14) Blood Urea Nitrogen 37 mg/dL (7-20) 45 mg/dL (7-20) Creatinine 1.5 mg/dL (0.6-1.0) 2.0 mg/dL (0.6-1.0) Estimated GFR (Cockcroft-Gault) 32.8 23.5 BUN/Creatinine Ratio 25 (6-20) 23 (6-20) Glucose Level 126 mg/dL (70-99) 88 mg/dL (70-99) Calcium Level 10.1 mg/dL (8.5-10.1) 8.3 mg/dL (8.5-10.1) Magnesium Level 2.4 mg/dL (1.8-2.4) Total Bilirubin 1.2 mg/dL (0.2-1.0) 0.7 mg/dL (0.2-1.0) Aspartate Amino Transf (AST/SGOT) 23 U/L (15-37) 19 U/L (15-37) Alanine Aminotransferase (ALT/SGPT) 16 U/L (14-59) 14 U/L (14-59) Alkaline Phosphatase 122 U/L (46-116) 93 U/L (46-116) Creatine Kinase 61 U/L (26-192) Creatine Kinase MB (Mass) 1.7 ng/mL (0.0-3.6) Creatine Kinase MB Relative Index % (0-4) Troponin I Quantitative 0.198 ng/mL (0.000-0.055) NF-Hop-G-Type Natriuretic Peptide 8692 pg/mL (0-449) Total Protein 8.0 g/dL (6.4-8.2) 6.5 g/dL (6.4-8.2) Albumin 4.4 g/dL (3.4-5.0) 3.3 g/dL (3.4-5.0) Albumin/Globulin Ratio 1.2 (1.0-1.7) 1.0 (1.0-1.7) Lipase 159 U/L (73-393) Urine Collection Type U cath Urine Color Blanka Urine Clarity Clear Urine pH 5.5 Urine Specific [place] 1.020 Urine Protein 100 mg/dL (NEG-TRACE) Urine Glucose (UA) Negative mg/dL (NEG) Urine Ketones (Stick) 15 mg/dL (NEG) Urine Blood Moderate (NEG) Urine Nitrite Positive (NEG) Urine Bilirubin Small (NEG) Urine Urobilinogen Dipstick 0.2 mg/dL (0.2 mg/dL) Urine Leukocyte Esterase Negative (NEG) Urine RBC 1-2 /HPF (0-2) Urine WBC Occ /HPF (0-4) Urine Squamous Epithelial Cells Occ /LPF Urine Bacteria Many /HPF (0-FEW) Urine Opiates Screen Neg (NEG) Urine Methadone Screen Neg (NEG) Urine Barbiturates Neg (NEG) Urine Phencyclidine Screen Neg (NEG) Urine Amphetamine/Methamphetamine Neg (NEG) Urine Benzodiazepines Screen Neg (NEG) Urine Cocaine Screen Neg (NEG) Urine Cannabinoids Screen Neg (NEG) Urine Ethyl Alcohol Neg (NEG) Lactic Acid Level 1.8 mmol/L (0.4-2.0) Segmented Neutrophils % 40 % (35-66) Band Neutrophils % 29 % (0-9) Lymphocytes % 18 % (24-48) Monocytes % 12 % (0-10) Myelocytes % 1 % (0-0) Platelet Estimate Adequate (ADEQUATE) Anisocytosis Slight Ovalocytes Few Laboratory Tests Test 11/18/17 03:47 White Blood Count 3.4 x10^3/uL (4.0-11.0) Red Blood Count 4.43 x10^6/uL (3.50-5.40) Hemoglobin 13.8 g/dL (12.0-15.5) Hematocrit 41.0 % (36.0-47.0) Mean Corpuscular Volume 93 fL (79-100) Mean Corpuscular Hemoglobin 31 pg (25-35) Mean Corpuscular Hemoglobin Concent 34 g/dL (31-37) Red Cell Distribution Width 16.4 % (11.5-14.5) Platelet Count 216 x10^3/uL (140-400) Neutrophils (%) (Auto) 73 % (31-73) Lymphocytes (%) (Auto) 13 % (24-48) Monocytes (%) (Auto) 12 % (0-9) Eosinophils (%) (Auto) 1 % (0-3) Basophils (%) (Auto) 1 % (0-3) Neutrophils # (Auto) 2.5 x10^3uL (1.8-7.7) Lymphocytes # (Auto) 0.4 x10^3/uL (1.0-4.8) Monocytes # (Auto) 0.4 x10^3/uL (0.0-1.1) Eosinophils # (Auto) 0.0 x10^3/uL (0.0-0.7) Basophils # (Auto) 0.0 x10^3/uL (0.0-0.2) Segmented Neutrophils % 40 % (35-66) Band Neutrophils % 29 % (0-9) Lymphocytes % 18 % (24-48) Monocytes % 12 % (0-10) Myelocytes % 1 % (0-0) Platelet Estimate Adequate (ADEQUATE) Anisocytosis Slight Ovalocytes Few Sodium Level 137 mmol/L (136-145) Potassium Level 3.7 mmol/L (3.5-5.1) Chloride Level 102 mmol/L (98-107) Carbon Dioxide Level 25 mmol/L (21-32) Anion Gap 10 (6-14) Blood Urea Nitrogen 45 mg/dL (7-20) Creatinine 2.0 mg/dL (0.6-1.0) Estimated GFR (Cockcroft-Gault) 23.5 BUN/Creatinine Ratio 23 (6-20) Glucose Level 88 mg/dL (70-99) Calcium Level 8.3 mg/dL (8.5-10.1) Total Bilirubin 0.7 mg/dL (0.2-1.0) Aspartate Amino Transf (AST/SGOT) 19 U/L (15-37) Alanine Aminotransferase (ALT/SGPT) 14 U/L (14-59) Alkaline Phosphatase 93 U/L (46-116) Total Protein 6.5 g/dL (6.4-8.2) Albumin 3.3 g/dL (3.4-5.0) Albumin/Globulin Ratio 1.0 (1.0-1.7) Assessment/Plan Assessment/Plan Patient with elevated troponin likely secondary to metabolic picture, with a bowel obstruction and acute renal insufficiency with hypovolemia. I would recommend IV fluids , keep her NPO and I agree with the surgical recommendations. Thank you very much for allowing me to participate in the care of this patient BOOKER LUCIA MD Nov 18, 2017 20:43
[2017-11-19] VITALS (11 sets, daily range): BP systolic 138–170; BP diastolic 74–92
[2017-11-19] MEDS: IV NORMAL SALINE 1000ML BAG 1,000 ML IV SCH ×2 (05:32→20:33)
[2017-11-19] MEDS: PROCHLORPERAZINE 10 MG/2 ML VIAL. IV PRN (05:32)
[2017-11-19] MEDS ORDERED: IV RINGERS,LACTATED 1000ML 1,000 ML IV SCH (07:00)
[2017-11-19] MEDS ORDERED: fentaNYL PF VIAL 100 MCG/2 ML VIAL IV PRN ×2 (07:00)
[2017-11-19] MEDS ORDERED: PROCHLORPERAZINE 10 MG/2 ML VIAL. IV PRN (07:00)
[2017-11-19] MEDS ORDERED: MORPHINE SULFATE 2 MG/ML VIAL. IV PRN (07:00)
[2017-11-19] MEDS ORDERED: HYDROmorphone 2 MG/ML VIAL IV PRN (07:00)
[2017-11-19] MEDS ORDERED: LIDOCAINE 1% PF 2 ML VIAL. ID PRN (07:00)
[2017-11-19] MEDS ORDERED: ONDANSETRON PF 4 MG/2 ML VIAL. IV PRN (07:00)
--- NOTE | 2017-11-19 07:46 | RAD ---
Small bowel series, 11/18/2017: HISTORY: Small bowel obstruction The preliminary abdominal image demonstrates multiple moderately dilated gas-filled small bowel loops in the central abdomen with only a small amount of colonic gas evident. Multiple surgical clips are present in the pelvis. A calcified greater gallstone is evident in the right upper quadrant. There is moderate hypertrophic degenerative change of the lumbar spine with a mild lumbar scoliosis. There is severe degenerative change at the right hip joint. Serial digital radiographs were obtained following oral ingestion of nonionic contrast. No fluoroscopy was utilized due to delayed passage of the contrast. There is a large hiatal hernia. The stomach is distended. The proximal and mid small bowel are distended. No fold thickening is seen. There is delayed transit of the contrast through the small bowel. Contrast reached the right colon at 13.5 hours. There are distal small bowel loops which are not dilated. A definite transition zone is not seen, however, it appears to lie in the right lower quadrant. The terminal ileum is not clearly defined. IMPRESSION: 1. High-grade partial distal small bowel obstruction. 2. Large hiatal hernia. 3. Cholelithiasis Electronically signed by: Tim Witt MD (11/19/2017 7:42 AM) [facility]
[2017-11-19 08:23] LABS: BASO % 0 % (0-3); EOS % 0 % (0-3); HEMATOCRIT 41.8 % (36.0-47.0); HEMOGLOBIN 13.9 g/dL (12.0-15.5); LYMPH # 0.4 x10^3/uL (1.0-4.8); LYMPH % 9 % (24-48); MEAN CORPUSCULAR HEMOGLOBIN 31 pg (25-35); MEAN CORPUSCULAR HGB CONC 33 g/dL (31-37); MEAN CORPUSCULAR VOLUME 93 fL (79-100); MONO # 0.4 x10^3/uL (0.0-1.1); MONO % 11 % (0-9); NEUT # 3.3 x10^3uL (1.8-7.7); NEUT % 80 % (31-73); PLATELET COUNT 212 x10^3/uL (140-400); RED BLOOD COUNT 4.51 x10^6/uL (3.50-5.40); RED CELL DISTRIBUTION WIDTH 16.4 % (11.5-14.5); WHITE BLOOD COUNT 4.1 x10^3/uL (4.0-11.0)
[2017-11-19] MEDS: LACTOBACILLUS RHAMNOSUS GG 1 CAPSULE. PO SCH ×2 (08:40→20:30)
[2017-11-19] MEDS: cefTRIAXone IV Push 1 GM VIAL. IVP SCH (08:40)
[2017-11-19 08:43] LABS: CALCIUM 8.9 mg/dL (8.5-10.1); CREATININE 1.5 mg/dL (0.6-1.0); GFR 32.8
[2017-11-19] MEDS ORDERED: SUCCINYLCHOLINE 200 MG/10 ML VIAL. ONE (08:46)
[2017-11-19] MEDS ORDERED: ROCURONIUM 50 MG/5 ML VIAL. ONE (08:47)
[2017-11-19] MEDS ORDERED: PHENYLEPHRINE in 0.9% NACL PF 1 MG/10 ML SYRINGE. IV ONE (08:47)
[2017-11-19] MEDS ORDERED: DESFLURANE 61 TO 120 MINUTES IH ONE (08:47)
[2017-11-19] MEDS ORDERED: PROPOFOL 20 ML IV ONE (08:47)
[2017-11-19] MEDS ORDERED: ONDANSETRON PF 4 MG/2 ML VIAL. ONE (08:47)
[2017-11-19] MEDS ORDERED: fentaNYL PF VIAL 100 MCG/2 ML VIAL ONE (08:47)
[2017-11-19] MEDS ORDERED: DEXAMETHASONE SOD PHOS 20 MG/5 ML VIAL. ONE (08:47)
--- NOTE | 2017-11-19 08:49 | PDOC ---
THIEN MENJIVAR PORTABLE CANTEEN OPERATOR 11/19/17 0849: SURGICAL PROGRESS NOTE Subjective LLQ pain, not feeling well no flatus or stool Vital Signs Vital Signs Date Time Temp Pulse Resp B/P (MAP) Pulse Ox O2 Delivery O2 Flow Rate FiO2 11/19/17 07:00 97.7 81 16 163/92 (115) 92 Room Air 97.7 I&O Intake and Output 11/19/17 07:00 Intake Total 2000 ml Output Total 0 ml Balance 2000 ml Intake Oral 0 ml IV Total 2000 ml Output Urine Total 0 ml # Voids 2 General: Alert, Oriented X3, Cooperative, No acute distress Abdomen: Soft, Other (mild distention, LLQ TTP) Labs Laboratory Tests Test 11/17/17 11:00 11/17/17 11:10 11/17/17 13:05 11/18/17 03:47 White Blood Count 5.0 x10^3/uL (4.0-11.0) 3.4 x10^3/uL (4.0-11.0) Red Blood Count 5.13 x10^6/uL (3.50-5.40) 4.43 x10^6/uL (3.50-5.40) Hemoglobin 16.0 g/dL (12.0-15.5) 13.8 g/dL (12.0-15.5) Hematocrit 46.4 % (36.0-47.0) 41.0 % (36.0-47.0) Mean Corpuscular Volume 90 fL (79-100) 93 fL (79-100) Mean Corpuscular Hemoglobin 31 pg (25-35) 31 pg (25-35) Mean Corpuscular Hemoglobin Concent 34 g/dL (31-37) 34 g/dL (31-37) Red Cell Distribution Width 15.6 % (11.5-14.5) 16.4 % (11.5-14.5) Platelet Count 286 x10^3/uL (140-400) 216 x10^3/uL (140-400) Neutrophils (%) (Auto) 76 % (31-73) 73 % (31-73) Lymphocytes (%) (Auto) 12 % (24-48) 13 % (24-48) Monocytes (%) (Auto) 12 % (0-9) 12 % (0-9) Eosinophils (%) (Auto) 0 % (0-3) 1 % (0-3) Basophils (%) (Auto) 0 % (0-3) 1 % (0-3) Neutrophils # (Auto) 3.8 x10^3uL (1.8-7.7) 2.5 x10^3uL (1.8-7.7) Lymphocytes # (Auto) 0.6 x10^3/uL (1.0-4.8) 0.4 x10^3/uL (1.0-4.8) Monocytes # (Auto) 0.6 x10^3/uL (0.0-1.1) 0.4 x10^3/uL (0.0-1.1) Eosinophils # (Auto) 0.0 x10^3/uL (0.0-0.7) 0.0 x10^3/uL (0.0-0.7) Basophils # (Auto) 0.0 x10^3/uL (0.0-0.2) 0.0 x10^3/uL (0.0-0.2) Sodium Level 134 mmol/L (136-145) 137 mmol/L (136-145) Potassium Level 4.0 mmol/L (3.5-5.1) 3.7 mmol/L (3.5-5.1) Chloride Level 96 mmol/L (98-107) 102 mmol/L (98-107) Carbon Dioxide Level 24 mmol/L (21-32) 25 mmol/L (21-32) Anion Gap 14 (6-14) 10 (6-14) Blood Urea Nitrogen 37 mg/dL (7-20) 45 mg/dL (7-20) Creatinine 1.5 mg/dL (0.6-1.0) 2.0 mg/dL (0.6-1.0) Estimated GFR (Cockcroft-Gault) 32.8 23.5 BUN/Creatinine Ratio 25 (6-20) 23 (6-20) Glucose Level 126 mg/dL (70-99) 88 mg/dL (70-99) Calcium Level 10.1 mg/dL (8.5-10.1) 8.3 mg/dL (8.5-10.1) Magnesium Level 2.4 mg/dL (1.8-2.4) Total Bilirubin 1.2 mg/dL (0.2-1.0) 0.7 mg/dL (0.2-1.0) Aspartate Amino Transf (AST/SGOT) 23 U/L (15-37) 19 U/L (15-37) Alanine Aminotransferase (ALT/SGPT) 16 U/L (14-59) 14 U/L (14-59) Alkaline Phosphatase 122 U/L (46-116) 93 U/L (46-116) Creatine Kinase 61 U/L (26-192) Creatine Kinase MB (Mass) 1.7 ng/mL (0.0-3.6) Creatine Kinase MB Relative Index % (0-4) Troponin I Quantitative 0.198 ng/mL (0.000-0.055) [id number] Natriuretic Peptide 8692 pg/mL (0-449) Total Protein 8.0 g/dL (6.4-8.2) 6.5 g/dL (6.4-8.2) Albumin 4.4 g/dL (3.4-5.0) 3.3 g/dL (3.4-5.0) Albumin/Globulin Ratio 1.2 (1.0-1.7) 1.0 (1.0-1.7) Lipase 159 U/L (73-393) Urine Collection Type U cath Urine Color Blanka Urine Clarity Clear Urine pH 5.5 Urine Specific [place] 1.020 Urine Protein 100 mg/dL (NEG-TRACE) Urine Glucose (UA) Negative mg/dL (NEG) Urine Ketones (Stick) 15 mg/dL (NEG) Urine Blood Moderate (NEG) Urine Nitrite Positive (NEG) Urine Bilirubin Small (NEG) Urine Urobilinogen Dipstick 0.2 mg/dL (0.2 mg/dL) Urine Leukocyte Esterase Negative (NEG) Urine RBC 1-2 /HPF (0-2) Urine WBC Occ /HPF (0-4) Urine Squamous Epithelial Cells Occ /LPF Urine Bacteria Many /HPF (0-FEW) Urine Opiates Screen Neg (NEG) Urine Methadone Screen Neg (NEG) Urine Barbiturates Neg (NEG) Urine Phencyclidine Screen Neg (NEG) Urine Amphetamine/Methamphetamine Neg (NEG) Urine Benzodiazepines Screen Neg (NEG) Urine Cocaine Screen Neg (NEG) Urine Cannabinoids Screen Neg (NEG) Urine Ethyl Alcohol Neg (NEG) Lactic Acid Level 1.8 mmol/L (0.4-2.0) Segmented Neutrophils % 40 % (35-66) Band Neutrophils % 29 % (0-9) Lymphocytes % 18 % (24-48) Monocytes % 12 % (0-10) Myelocytes % 1 % (0-0) Platelet Estimate Adequate (ADEQUATE) Anisocytosis Slight Ovalocytes Few Test 11/19/17 07:07 White Blood Count 4.1 x10^3/uL (4.0-11.0) Red Blood Count 4.51 x10^6/uL (3.50-5.40) Hemoglobin 13.9 g/dL (12.0-15.5) Hematocrit 41.8 % (36.0-47.0) Mean Corpuscular Volume 93 fL (79-100) Mean Corpuscular Hemoglobin 31 pg (25-35) Mean Corpuscular Hemoglobin Concent 33 g/dL (31-37) Red Cell Distribution Width 16.4 % (11.5-14.5) Platelet Count 212 x10^3/uL (140-400) Neutrophils (%) (Auto) 80 % (31-73) Lymphocytes (%) (Auto) 9 % (24-48) Monocytes (%) (Auto) 11 % (0-9) Eosinophils (%) (Auto) 0 % (0-3) Basophils (%) (Auto) 0 % (0-3) Neutrophils # (Auto) 3.3 x10^3uL (1.8-7.7) Lymphocytes # (Auto) 0.4 x10^3/uL (1.0-4.8) Monocytes # (Auto) 0.4 x10^3/uL (0.0-1.1) Eosinophils # (Auto) 0.0 x10^3/uL (0.0-0.7) Basophils # (Auto) 0.0 x10^3/uL (0.0-0.2) Sodium Level 142 mmol/L (136-145) Potassium Level 4.0 mmol/L (3.5-5.1) Chloride Level 107 mmol/L (98-107) Carbon Dioxide Level 19 mmol/L (21-32) Anion Gap 16 (6-14) Blood Urea Nitrogen 46 mg/dL (7-20) Creatinine 1.5 mg/dL (0.6-1.0) Estimated GFR (Cockcroft-Gault) 32.8 Glucose Level 110 mg/dL (70-99) Calcium Level 8.9 mg/dL (8.5-10.1) Laboratory Tests Test 11/19/17 07:07 White Blood Count 4.1 x10^3/uL (4.0-11.0) Red Blood Count 4.51 x10^6/uL (3.50-5.40) Hemoglobin 13.9 g/dL (12.0-15.5) Hematocrit 41.8 % (36.0-47.0) Mean Corpuscular Volume 93 fL (79-100) Mean Corpuscular Hemoglobin 31 pg (25-35) Mean Corpuscular Hemoglobin Concent 33 g/dL (31-37) Red Cell Distribution Width 16.4 % (11.5-14.5) Platelet Count 212 x10^3/uL (140-400) Neutrophils (%) (Auto) 80 % (31-73) Lymphocytes (%) (Auto) 9 % (24-48) Monocytes (%) (Auto) 11 % (0-9) Eosinophils (%) (Auto) 0 % (0-3) Basophils (%) (Auto) 0 % (0-3) Neutrophils # (Auto) 3.3 x10^3uL (1.8-7.7) Lymphocytes # (Auto) 0.4 x10^3/uL (1.0-4.8) Monocytes # (Auto) 0.4 x10^3/uL (0.0-1.1) Eosinophils # (Auto) 0.0 x10^3/uL (0.0-0.7) Basophils # (Auto) 0.0 x10^3/uL (0.0-0.2) Sodium Level 142 mmol/L (136-145) Potassium Level 4.0 mmol/L (3.5-5.1) Chloride Level 107 mmol/L (98-107) Carbon Dioxide Level 19 mmol/L (21-32) Anion Gap 16 (6-14) Blood Urea Nitrogen 46 mg/dL (7-20) Creatinine 1.5 mg/dL (0.6-1.0) Estimated GFR (Cockcroft-Gault) 32.8 Glucose Level 110 mg/dL (70-99) Calcium Level 8.9 mg/dL (8.5-10.1) Problem List Problems Medical Problems: (1) Non-ST elevation myocardial infarction (NSTEMI) Status: Acute (2) UTI (urinary tract infection) Status: Acute Assessment/Plan SBFT reviewed, delayed transit of 13.5 hrs to right colon, still with obstructive symptoms this AM reviewed wt Dr Dejesus, plan for surgery today TYREE DEJESUS MD 11/19/17 1257: SURGICAL PROGRESS NOTE Assessment/Plan Reviewed, recommend surgery THIEN MENJIVAR APRN Nov 19, 2017 08:49 TYREE DEJESUS MD Nov 19, 2017 12:57
[2017-11-19] MEDS ORDERED: BUPIVACAINE-EPI 0.5%-1:200000 50 ML VIAL. IJ ONE (10:15)
[2017-11-19] MEDS ORDERED: ePHEDrine PF IN SALINE 50 MG/5 ML DISP.SYRIN IV ONE (10:59)
[2017-11-19] MEDS ORDERED: GLYCOPYRROLATE 1 MG/5 ML VIAL. ONE (11:44)
[2017-11-19] MEDS ORDERED: NEOSTIGMINE METHYLSULFATE 5 MG/5 ML SYRINGE. ONE (11:45)
--- NOTE | 2017-11-19 11:51 | PN ---
DATE: 11/19/2017 LOCATION: She is in room 404. SUBJECTIVE: The patient is awake, alert, son is in attendance. She has vomited last earlier this morning, is refusing replacement of an NG tube, would rather vomit and have that in. OBJECTIVE: VITAL SIGNS: Stable. She is afebrile, blood pressures are increased and a list of her home meds are not in the computer and I will have to look when I get to the office whether there is an antihypertensive or not in those meds and she may need to be started on a clonidine patch as she is unable to take p.o. IV fluids continue running. Creatinine was up to 2 yesterday and will need to be rechecked in the morning. CHEST: Clear. HEART: Regular. ABDOMEN: Fairly soft and very silent this morning. Small bowel series yesterday showed a high-grade partial distal small-bowel obstruction. Surgery is following along. ASSESSMENT: Mechanical small-bowel obstruction with ongoing vomiting. She does state that she has a little bit of gas this morning, she thinks, but a very small amount. She is being covered for urinary tract infection, pending culture results. Cardiology has been asked to see her for an elevated troponin for which she has no EKG changes. They feel like this is noncardiac related and related to rest of her illness; otherwise, the same will be continued. WANDA ELY MD DR: MANISH/chinmay JOB#: [id number] / [id number]
--- NOTE | 2017-11-19 12:56 | PDOC4 ---
Operative Note Operative Note Operative Note: Preoperative Diagnosis: Small bowel obstruction Postoperative Diagnosis: Same Procedure: Laparoscopic lysis of adhesions, release of small bowel obstruction Surgeon: Oleg Anesthesia: Gen. EBL: 20 mL Specimen: None Drains: None Complications: None Indication: The patient is in 87-year-old female who presented with a high- grade small bowel obstruction. We recommend surgical treatment and plan for laparoscopic evaluation. She understands the possibility of requiring an open surgery. She and her family are also aware of the risks of surgery which include bleeding, infection, bowel injury, pain, anesthetic risk, recurrent obstruction, potential need for additional surgery or procedure. She understands and would like to proceed. Description: The patient was taken to the operating room and placed supine on the operating table. Gen. anesthesia was performed. The abdomen was prepped with ChloraPrep and draped in a standard surgical manner. A small incision was made in the left upper quadrant through which a visualized 5 mm trocar was inserted. A pneumoperitoneum was created and the laparoscope was introduced. Initial inspection showed significant amount of adhesions involving primarily omentum to the anterior abdominal wall. 2 additional 5 mm ports were placed in the left lateral abdomen. Using a combination of sharp dissection and the Harmonic scalpel all of the omental adhesions were taken down from the abdominal wall. We then were better able to visualize the bowel. There were some grossly dilated ducts of small bowel with inflammatory change consistent with a high-grade obstruction. We were able to then identify decompressed small bowel loops that appeared to be distal ileum. We followed the small bowel retrograde and identified the obstructive site. There were some omental adhesions in the area of the ileum causing a choke point. We were able to lyse these adhesions sharply and the obstruction was relieved. Proximal to this was normal appearing small bowel that was mobile although dilated with some visible effects due to obstruction. The remainder of the abdominal cavity appeared unremarkable. There was no bowel injury that occurred during the entire procedure. The pneumoperitoneum was relieved and the laparoscopic ports were removed. The skin at all incisions was closed with 4-0 Monocryl. Steri-Strips and sings were applied. The patient tolerated the procedure well and was sent to the recovery room in stable condition. At the end of the case all counts were correct. TYREE ALVAREZ MD Nov 19, 2017 12:56
--- NOTE | 2017-11-19 17:32 | PDOC ---
PROGRESS NOTES Subjective Subjective The patient tolerated the surgery today very well. Right now she is awake alert and states that she feels much better with a lot less abdominal pain. No cardiac complaints. Objective Objective Vital Signs Date Time Temp Pulse Resp B/P (MAP) Pulse Ox O2 Delivery O2 Flow Rate FiO2 11/19/17 15:00 97.9 85 16 143/78 (99) 94 Room Air 97.9 11/19/17 13:11 3 Intake and Output 11/19/17 07:00 Intake Total 2000 ml Output Total 0 ml Balance 2000 ml Intake Oral 0 ml IV Total 2000 ml Output Urine Total 0 ml # Voids 2 Physical Exam Physical Exam No significant changes in cardiac exam Assessment Assessment Patient compensated cardiac-caballero. I agree with present plan. Comment Review of Relevant I have reviewed the following items opal (where applicable) has been applied. Labs Laboratory Tests Test 11/18/17 03:47 11/19/17 07:07 White Blood Count 3.4 x10^3/uL (4.0-11.0) 4.1 x10^3/uL (4.0-11.0) Red Blood Count 4.43 x10^6/uL (3.50-5.40) 4.51 x10^6/uL (3.50-5.40) Hemoglobin 13.8 g/dL (12.0-15.5) 13.9 g/dL (12.0-15.5) Hematocrit 41.0 % (36.0-47.0) 41.8 % (36.0-47.0) Mean Corpuscular Volume 93 fL (79-100) 93 fL (79-100) Mean Corpuscular Hemoglobin 31 pg (25-35) 31 pg (25-35) Mean Corpuscular Hemoglobin Concent 34 g/dL (31-37) 33 g/dL (31-37) Red Cell Distribution Width 16.4 % (11.5-14.5) 16.4 % (11.5-14.5) Platelet Count 216 x10^3/uL (140-400) 212 x10^3/uL (140-400) Neutrophils (%) (Auto) 73 % (31-73) 80 % (31-73) Lymphocytes (%) (Auto) 13 % (24-48) 9 % (24-48) Monocytes (%) (Auto) 12 % (0-9) 11 % (0-9) Eosinophils (%) (Auto) 1 % (0-3) 0 % (0-3) Basophils (%) (Auto) 1 % (0-3) 0 % (0-3) Neutrophils # (Auto) 2.5 x10^3uL (1.8-7.7) 3.3 x10^3uL (1.8-7.7) Lymphocytes # (Auto) 0.4 x10^3/uL (1.0-4.8) 0.4 x10^3/uL (1.0-4.8) Monocytes # (Auto) 0.4 x10^3/uL (0.0-1.1) 0.4 x10^3/uL (0.0-1.1) Eosinophils # (Auto) 0.0 x10^3/uL (0.0-0.7) 0.0 x10^3/uL (0.0-0.7) Basophils # (Auto) 0.0 x10^3/uL (0.0-0.2) 0.0 x10^3/uL (0.0-0.2) Segmented Neutrophils % 40 % (35-66) Band Neutrophils % 29 % (0-9) Lymphocytes % 18 % (24-48) Monocytes % 12 % (0-10) Myelocytes % 1 % (0-0) Platelet Estimate Adequate (ADEQUATE) Anisocytosis Slight Ovalocytes Few Sodium Level 137 mmol/L (136-145) 142 mmol/L (136-145) Potassium Level 3.7 mmol/L (3.5-5.1) 4.0 mmol/L (3.5-5.1) Chloride Level 102 mmol/L (98-107) 107 mmol/L (98-107) Carbon Dioxide Level 25 mmol/L (21-32) 19 mmol/L (21-32) Anion Gap 10 (6-14) 16 (6-14) Blood Urea Nitrogen 45 mg/dL (7-20) 46 mg/dL (7-20) Creatinine 2.0 mg/dL (0.6-1.0) 1.5 mg/dL (0.6-1.0) Estimated GFR (Cockcroft-Gault) 23.5 32.8 BUN/Creatinine Ratio 23 (6-20) Glucose Level 88 mg/dL (70-99) 110 mg/dL (70-99) Calcium Level 8.3 mg/dL (8.5-10.1) 8.9 mg/dL (8.5-10.1) Total Bilirubin 0.7 mg/dL (0.2-1.0) Aspartate Amino Transf (AST/SGOT) 19 U/L (15-37) Alanine Aminotransferase (ALT/SGPT) 14 U/L (14-59) Alkaline Phosphatase 93 U/L (46-116) Total Protein 6.5 g/dL (6.4-8.2) Albumin 3.3 g/dL (3.4-5.0) Albumin/Globulin Ratio 1.0 (1.0-1.7) Laboratory Tests Test 11/19/17 07:07 White Blood Count 4.1 x10^3/uL (4.0-11.0) Red Blood Count 4.51 x10^6/uL (3.50-5.40) Hemoglobin 13.9 g/dL (12.0-15.5) Hematocrit 41.8 % (36.0-47.0) Mean Corpuscular Volume 93 fL (79-100) Mean Corpuscular Hemoglobin 31 pg (25-35) Mean Corpuscular Hemoglobin Concent 33 g/dL (31-37) Red Cell Distribution Width 16.4 % (11.5-14.5) Platelet Count 212 x10^3/uL (140-400) Neutrophils (%) (Auto) 80 % (31-73) Lymphocytes (%) (Auto) 9 % (24-48) Monocytes (%) (Auto) 11 % (0-9) Eosinophils (%) (Auto) 0 % (0-3) Basophils (%) (Auto) 0 % (0-3) Neutrophils # (Auto) 3.3 x10^3uL (1.8-7.7) Lymphocytes # (Auto) 0.4 x10^3/uL (1.0-4.8) Monocytes # (Auto) 0.4 x10^3/uL (0.0-1.1) Eosinophils # (Auto) 0.0 x10^3/uL (0.0-0.7) Basophils # (Auto) 0.0 x10^3/uL (0.0-0.2) Sodium Level 142 mmol/L (136-145) Potassium Level 4.0 mmol/L (3.5-5.1) Chloride Level 107 mmol/L (98-107) Carbon Dioxide Level 19 mmol/L (21-32) Anion Gap 16 (6-14) Blood Urea Nitrogen 46 mg/dL (7-20) Creatinine 1.5 mg/dL (0.6-1.0) Estimated GFR (Cockcroft-Gault) 32.8 Glucose Level 110 mg/dL (70-99) Calcium Level 8.9 mg/dL (8.5-10.1) Medications Current Medications Dicyclomine HCl (Bentyl) 20 mg 1X ONCE PO Last administered on 11/17/17at 11:56 ; Start 11/17/17 at 11:00; Stop 11/17/17 at 11:02; Status DC Pantoprazole Sodium (PROTONIX VIAL for IV PUSH) 40 mg 1X ONCE IVP Last administered on 11/17/17at 11:56; Start 11/17/17 at 11:00; Stop 11/17/17 at 11:02; Status DC Sodium Chloride 1,000 ml @ 1,000 mls/hr 1X ONCE IV Last administered on at 11:51; Start 11/17/17 at 11:00; Stop 11/17/17 at 11:59; Status DC Ondansetron HCl (Zofran) 4 mg 1X ONCE IV Last administered on 11/17/17at 11:53; Start 11/17/17 at 11:00; Stop 11/17/17 at 11:02; Status DC Ceftriaxone Sodium 50 ml @ 100 mls/hr 1X ONCE IV Last administered on at 12:03; Start 11/17/17 at 12:00; Stop 11/17/17 at 12:29; Status DC Ondansetron HCl (Zofran) 4 mg PRN Q8HRS PRN IV NAUSEA/VOMITING; Start 11/17/17 at 13:00; Stop 11/18/17 at 12:59; Status DC Morphine Sulfate (Morphine Sulfate) 4 mg PRN Q2HR PRN IV PAIN Last administered on 11/18/17at 02:31; Start 11/17/17 at 13:00; Stop 11/18/17 at 12:59 ; Status DC Sodium Chloride 1,000 ml @ 75 mls/hr 1X ONCE IV Last administered on at 15:51; Start 11/17/17 at 13:00; Stop 11/18/17 at 12:49; Status DC Prochlorperazine Edisylate (Compazine) 10 mg PRN TID PRN IV NAUSEA Last administered on 11/19/17at 05:32; Start 11/17/17 at 13:00 Benzocaine (Hurricaine One) 1 spray 1X ONCE MM Last administered on 11/17/17at 13:19; Start 11/17/17 at 13:15; Stop 11/17/17 at 13:16; Status DC Benzocaine (Hurricaine One) 1 spray 1X ONCE MM Last administered on 11/17/17at 16:23; Start 11/17/17 at 16:00; Stop 11/17/17 at 16:01; Status DC Iohexol (Omnipaque 300 Mg/ml) 400 ml 1X ONCE PO Last administered on at 09:33; Start 11/18/17 at 08:15; Stop 11/18/17 at 08:16; Status DC Info (CONTRAST GIVEN -- Rx MONITORING) 1 each PRN DAILY PRN MC SEE COMMENTS; Start 11/18/17 at 08:15; Stop 11/20/17 at 08:14 Ceftriaxone Sodium 1 gm/ Dextrose 50 ml @ 100 mls/hr Q24H IV ; Start 11/18/17 at 08:45; Status UNV Ceftriaxone Sodium (Rocephin) 1 gm Q24H IVP Last administered on 11/19/17at 08: 40; Start 11/18/17 at 09:00 Lactobacillus Rhamnosus (Culturelle) 1 cap BID PO ; Start 11/18/17 at 09:00 Sodium Chloride 1,000 ml @ 100 mls/hr Q10H IV Last administered on 11/19/17at 05:32; Start 11/18/17 at 13:00 Ondansetron HCl (Zofran) 4 mg PRN Q6HRS PRN IV NAUSEA/VOMITING; Start 11/19/17 at 07:00; Stop 11/19/17 at 13:49; Status DC Fentanyl Citrate (Fentanyl 2ml Vial) 25 mcg PRN Q5MIN PRN IV MILD PAIN; Start 11/19/17 at 07:00; Stop 11/19/17 at 13:49; Status DC Fentanyl Citrate (Fentanyl 2ml Vial) 50 mcg PRN Q5MIN PRN IV MODERATE TO SEVERE PAIN; Start 11/19/17 at 07:00; Stop 11/19/17 at 13:49; Status DC Morphine Sulfate (Morphine Sulfate) 1 mg PRN Q10MIN PRN IV SEVERE PAIN; Start 11/19/17 at 07:00; Stop 11/19/17 at 13:49; Status DC Ringer's Solution 1,000 ml @ 30 mls/hr Q24H IV ; Start 11/19/17 at 07:00; Stop 11/19/17 at 13:49; Status DC Lidocaine HCl (Xylocaine-Mpf 1% 2ml Vial) 2 ml PRN 1X PRN ID PRIOR TO IV START ; Start 11/19/17 at 07:00; Stop 11/19/17 at 13:49; Status DC Hydromorphone HCl (Dilaudid) 0.5 mg PRN Q10MIN PRN IV SEV PAIN, Second choice; Start 11/19/17 at 07:00; Stop 11/19/17 at 13:49; Status DC Prochlorperazine Edisylate (Compazine) 5 mg PACU PRN PRN IV NAUSEA, MRX1; Start 11/19/17 at 07:00; Stop 11/19/17 at 13:49; Status DC Succinylcholine Chloride (Anectine) 200 mg STK-MED ONCE .ROUTE ; Start 11/19/17 at 08:46; Stop 11/19/17 at 13:49; Status DC Rocuronium [place] (Zemuron) 50 mg STK-MED ONCE .ROUTE ; Start 11/19/17 at 08:47 ; Stop 11/19/17 at 13:49; Status DC Fentanyl Citrate (Fentanyl 2ml Vial) 100 mcg STK-MED ONCE .ROUTE ; Start at 08:47; Stop 11/19/17 at 13:49; Status DC Desflurane (Suprane) 60 ml STK-MED ONCE IH ; Start 11/19/17 at 08:47; Stop 11/19 at 13:49; Status DC Phenylephrine HCl (PHENYLEPHRINE in 0.9% NACL PF) 1 mg STK-MED ONCE IV ; Start 11/19/17 at 08:47; Stop 11/19/17 at 13:49; Status DC Propofol 20 ml @ As Directed STK-MED ONCE IV ; Start 11/19/17 at 08:47; Stop 01/26 at 13:49; Status DC Dexamethasone Sodium Phosphate (Decadron) 20 mg STK-MED ONCE .ROUTE ; Start 01/26 at 08:47; Stop 11/19/17 at 13:49; Status DC Ondansetron HCl (Zofran) 4 mg STK-MED ONCE .ROUTE ; Start 11/19/17 at 08:47; Stop 11/19/17 at 13:49; Status DC Cefazolin Sodium/ Dextrose 50 ml @ 100 mls/hr 1X PREOP PRN IV convolute tube winder to or Last administered on 11/19/17at 10:46; Start 11/19/17 at 09:00; Stop 11/19/17 at 13:49; Status DC Metronidazole 100 ml @ 100 mls/hr 1X PREOP PRN IV convolute tube winder to or; Start at 09:00; Stop 11/19/17 at 13:49; Status DC Bupivacaine HCl/ Epinephrine Bitart (Marcaine-Epi 0.5%-[id number]) 50 ml 1X ONCE IJ ; Start 11/19/17 at 10:15; Stop 11/19/17 at 13:49; Status DC Ephedrine Sulfate (ePHEDrine PF IN SALINE SYRINGE) 50 mg STK-MED ONCE IV ; Start 11/19/17 at 10:59; Stop 11/19/17 at 13:49; Status DC Glycopyrrolate (Robinul) 1 mg STK-MED ONCE .ROUTE ; Start 11/19/17 at 11:44; Stop 11/19/17 at 13:49; Status DC Neostigmine Methylsulfate (Neostigmine Methylsulfate) 5 mg STK-MED ONCE .ROUTE ; Start 11/19/17 at 11:45; Stop 11/19/17 at 13:49; Status DC Active Scripts Active Vitals/I & O Vital Sign - Last 24 Hours 11/18/17 11/18/17 11/18/17 11/18/17 19:00 19:05 23:00 23:41 Temp 98.4 98.6 98.4 98.6 Pulse 89 86 85 Resp 18 18 B/P (MAP) 181/100 (127) 193/100 (131) 179/89 (119) Pulse Ox 95 95 O2 Delivery Room Air Room Air Room Air 11/19/17 11/19/17 11/19/17 11/19/17 02:40 07:00 08:00 09:42 Temp 97.7 97.7 97.7 97.7 97.7 97.7 Pulse 76 81 83 Resp 16 16 24 B/P (MAP) 161/90 (113) 163/92 (115) 198/102 Pulse Ox 95 92 92 O2 Delivery Room Air Room Air Room Air Room Air 11/19/17 11/19/17 11/19/17 11/19/17 12:11 12:26 12:26 12:41 Temp 98.5 98.5 Pulse 82 83 82 Resp 24 16 16 B/P (MAP) 157/73 174/81 162/89 Pulse Ox 97 93 94 O2 Delivery Simple Mask Nasal Cannula Nasal Cannula Nasal Cannula O2 Flow Rate 10 2 4 2 11/19/17 11/19/17 11/19/17 12:56 13:11 15:00 Temp 98.2 97.9 98.2 97.9 Pulse 77 74 85 Resp 14 16 16 B/P (MAP) 168/73 159/86 143/78 (99) Pulse Ox 94 92 94 O2 Delivery Nasal Cannula Nasal Cannula Room Air O2 Flow Rate 3 3 Intake and Output 11/18/17 11/18/17 11/19/17 15:00 23:00 07:00 Intake Total 1000 ml 1000 ml Output Total 0 ml Balance 1000 ml 1000 ml BOOKER LUCIA MD Nov 19, 2017 17:32
[2017-11-20 03:29] VITALS: BP 121/82
[2017-11-20 06:01] LABS: CALCIUM 9.4 mg/dL (8.5-10.1); CREATININE 1.3 mg/dL (0.6-1.0); GFR 38.7; POTASSIUM 3.6 mmol/L (3.5-5.1)
[2017-11-20] MEDS: IV NORMAL SALINE 1000ML BAG 1,000 ML IV SCH ×2 (06:20→17:07)
[2017-11-20 07:00] VITALS: BP 173/83
[2017-11-20] MEDS: LACTOBACILLUS RHAMNOSUS GG 1 CAPSULE. PO SCH ×2 (08:34→20:56)
[2017-11-20] MEDS: cefTRIAXone IV Push 1 GM VIAL. IVP SCH (08:34)
[2017-11-20 11:19] VITALS: BP 162/78
--- NOTE | 2017-11-20 12:08 | PDOC ---
PROGRESS NOTES Subjective Subjective Patient complains of some abdominal postop discomfort. Objective Objective Vital Signs Date Time Temp Pulse Resp B/P (MAP) Pulse Ox O2 Delivery O2 Flow Rate FiO2 11/20/17 11:19 98.6 79 18 162/78 (106) 94 Room Air 98.6 11/19/17 19:45 3.0 Intake and Output 11/20/17 07:00 Intake Total 1739 ml Output Total 1550 ml Balance 189 ml Intake Oral 240 ml IV Total 1499 ml Output Urine Total 1550 ml # Voids 3 # Bowel Movements 4 Physical Exam Physical Exam Lungs are clear. Heart sounds unchanged. Abdomen bowel sounds are present Extremities no edema Assessment Assessment Patient is compensated cardiac-caballero. I agree with present plan. When she is able to maintain a good oral intake consider decreasing the IV fluids. Comment Review of Relevant I have reviewed the following items opal (where applicable) has been applied. Labs Laboratory Tests Test 11/19/17 07:07 11/20/17 04:19 White Blood Count 4.1 x10^3/uL (4.0-11.0) Red Blood Count 4.51 x10^6/uL (3.50-5.40) Hemoglobin 13.9 g/dL (12.0-15.5) Hematocrit 41.8 % (36.0-47.0) Mean Corpuscular Volume 93 fL (79-100) Mean Corpuscular Hemoglobin 31 pg (25-35) Mean Corpuscular Hemoglobin Concent 33 g/dL (31-37) Red Cell Distribution Width 16.4 % (11.5-14.5) Platelet Count 212 x10^3/uL (140-400) Neutrophils (%) (Auto) 80 % (31-73) Lymphocytes (%) (Auto) 9 % (24-48) Monocytes (%) (Auto) 11 % (0-9) Eosinophils (%) (Auto) 0 % (0-3) Basophils (%) (Auto) 0 % (0-3) Neutrophils # (Auto) 3.3 x10^3uL (1.8-7.7) Lymphocytes # (Auto) 0.4 x10^3/uL (1.0-4.8) Monocytes # (Auto) 0.4 x10^3/uL (0.0-1.1) Eosinophils # (Auto) 0.0 x10^3/uL (0.0-0.7) Basophils # (Auto) 0.0 x10^3/uL (0.0-0.2) Sodium Level 142 mmol/L (136-145) 145 mmol/L (136-145) Potassium Level 4.0 mmol/L (3.5-5.1) 3.6 mmol/L (3.5-5.1) Chloride Level 107 mmol/L (98-107) 109 mmol/L (98-107) Carbon Dioxide Level 19 mmol/L (21-32) 19 mmol/L (21-32) Anion Gap 16 (6-14) 17 (6-14) Blood Urea Nitrogen 46 mg/dL (7-20) 32 mg/dL (7-20) Creatinine 1.5 mg/dL (0.6-1.0) 1.3 mg/dL (0.6-1.0) Estimated GFR (Cockcroft-Gault) 32.8 38.7 Glucose Level 110 mg/dL (70-99) 95 mg/dL (70-99) Calcium Level 8.9 mg/dL (8.5-10.1) 9.4 mg/dL (8.5-10.1) Laboratory Tests Test 11/20/17 04:19 Sodium Level 145 mmol/L (136-145) Potassium Level 3.6 mmol/L (3.5-5.1) Chloride Level 109 mmol/L (98-107) Carbon Dioxide Level 19 mmol/L (21-32) Anion Gap 17 (6-14) Blood Urea Nitrogen 32 mg/dL (7-20) Creatinine 1.3 mg/dL (0.6-1.0) Estimated GFR (Cockcroft-Gault) 38.7 Glucose Level 95 mg/dL (70-99) Calcium Level 9.4 mg/dL (8.5-10.1) Microbiology 11/17/17 Urine Culture - Preliminary, Resulted 11/17/17 Urine Culture Result 1 (AYSE) - Preliminary, Resulted Medications Current Medications Dicyclomine HCl (Bentyl) 20 mg 1X ONCE PO Last administered on 11/17/17at 11:56 ; Start 11/17/17 at 11:00; Stop 11/17/17 at 11:02; Status DC Pantoprazole Sodium (PROTONIX VIAL for IV PUSH) 40 mg 1X ONCE IVP Last administered on 11/17/17at 11:56; Start 11/17/17 at 11:00; Stop 11/17/17 at 11:02; Status DC Sodium Chloride 1,000 ml @ 1,000 mls/hr 1X ONCE IV Last administered on at 11:51; Start 11/17/17 at 11:00; Stop 11/17/17 at 11:59; Status DC Ondansetron HCl (Zofran) 4 mg 1X ONCE IV Last administered on 11/17/17at 11:53; Start 11/17/17 at 11:00; Stop 11/17/17 at 11:02; Status DC Ceftriaxone Sodium 50 ml @ 100 mls/hr 1X ONCE IV Last administered on at 12:03; Start 11/17/17 at 12:00; Stop 11/17/17 at 12:29; Status DC Ondansetron HCl (Zofran) 4 mg PRN Q8HRS PRN IV NAUSEA/VOMITING; Start 11/17/17 at 13:00; Stop 11/18/17 at 12:59; Status DC Morphine Sulfate (Morphine Sulfate) 4 mg PRN Q2HR PRN IV PAIN Last administered on 11/18/17at 02:31; Start 11/17/17 at 13:00; Stop 11/18/17 at 12:59 ; Status DC Sodium Chloride 1,000 ml @ 75 mls/hr 1X ONCE IV Last administered on at 15:51; Start 11/17/17 at 13:00; Stop 11/18/17 at 12:49; Status DC Prochlorperazine Edisylate (Compazine) 10 mg PRN TID PRN IV NAUSEA Last administered on 11/19/17at 05:32; Start 11/17/17 at 13:00 Benzocaine (Hurricaine One) 1 spray 1X ONCE MM Last administered on 11/17/17at 13:19; Start 11/17/17 at 13:15; Stop 11/17/17 at 13:16; Status DC Benzocaine (Hurricaine One) 1 spray 1X ONCE MM Last administered on 11/17/17at 16:23; Start 11/17/17 at 16:00; Stop 11/17/17 at 16:01; Status DC Iohexol (Omnipaque 300 Mg/ml) 400 ml 1X ONCE PO Last administered on at 09:33; Start 11/18/17 at 08:15; Stop 11/18/17 at 08:16; Status DC Info (CONTRAST GIVEN -- Rx MONITORING) 1 each PRN DAILY PRN MC SEE COMMENTS; Start 11/18/17 at 08:15; Stop 11/20/17 at 08:14; Status DC Ceftriaxone Sodium 1 gm/ Dextrose 50 ml @ 100 mls/hr Q24H IV ; Start 11/18/17 at 08:45; Status UNV Ceftriaxone Sodium (Rocephin) 1 gm Q24H IVP Last administered on 11/20/17at 08: 34; Start 11/18/17 at 09:00 Lactobacillus Rhamnosus (Culturelle) 1 cap BID PO Last administered on at 08:34; Start 11/18/17 at 09:00 Sodium Chloride 1,000 ml @ 100 mls/hr Q10H IV Last administered on 11/20/17at 06:20; Start 11/18/17 at 13:00 Ondansetron HCl (Zofran) 4 mg PRN Q6HRS PRN IV NAUSEA/VOMITING; Start 11/19/17 at 07:00; Stop 11/19/17 at 13:49; Status DC Fentanyl Citrate (Fentanyl 2ml Vial) 25 mcg PRN Q5MIN PRN IV MILD PAIN; Start 11/19/17 at 07:00; Stop 11/19/17 at 13:49; Status DC Fentanyl Citrate (Fentanyl 2ml Vial) 50 mcg PRN Q5MIN PRN IV MODERATE TO SEVERE PAIN; Start 11/19/17 at 07:00; Stop 11/19/17 at 13:49; Status DC Morphine Sulfate (Morphine Sulfate) 1 mg PRN Q10MIN PRN IV SEVERE PAIN; Start 11/19/17 at 07:00; Stop 11/19/17 at 13:49; Status DC Ringer's Solution 1,000 ml @ 30 mls/hr Q24H IV ; Start 11/19/17 at 07:00; Stop 11/19/17 at 13:49; Status DC Lidocaine HCl (Xylocaine-Mpf 1% 2ml Vial) 2 ml PRN 1X PRN ID PRIOR TO IV START ; Start 11/19/17 at 07:00; Stop 11/19/17 at 13:49; Status DC Hydromorphone HCl (Dilaudid) 0.5 mg PRN Q10MIN PRN IV SEV PAIN, Second choice; Start 11/19/17 at 07:00; Stop 11/19/17 at 13:49; Status DC Prochlorperazine Edisylate (Compazine) 5 mg PACU PRN PRN IV NAUSEA, MRX1; Start 11/19/17 at 07:00; Stop 11/19/17 at 13:49; Status DC Succinylcholine Chloride (Anectine) 200 mg STK-MED ONCE .ROUTE ; Start 11/19/17 at 08:46; Stop 11/19/17 at 13:49; Status DC Rocuronium [place] (Zemuron) 50 mg STK-MED ONCE .ROUTE ; Start 11/19/17 at 08:47 ; Stop 11/19/17 at 13:49; Status DC Fentanyl Citrate (Fentanyl 2ml Vial) 100 mcg STK-MED ONCE .ROUTE ; Start at 08:47; Stop 11/19/17 at 13:49; Status DC Desflurane (Suprane) 60 ml STK-MED ONCE IH ; Start 11/19/17 at 08:47; Stop 11/19 at 13:49; Status DC Phenylephrine HCl (PHENYLEPHRINE in 0.9% NACL PF) 1 mg STK-MED ONCE IV ; Start 11/19/17 at 08:47; Stop 11/19/17 at 13:49; Status DC Propofol 20 ml @ As Directed STK-MED ONCE IV ; Start 11/19/17 at 08:47; Stop 01/26 at 13:49; Status DC Dexamethasone Sodium Phosphate (Decadron) 20 mg STK-MED ONCE .ROUTE ; Start 01/26 at 08:47; Stop 11/19/17 at 13:49; Status DC Ondansetron HCl (Zofran) 4 mg STK-MED ONCE .ROUTE ; Start 11/19/17 at 08:47; Stop 11/19/17 at 13:49; Status DC Cefazolin Sodium/ Dextrose 50 ml @ 100 mls/hr 1X PREOP PRN IV economics faculty member to or Last administered on 11/19/17at 10:46; Start 11/19/17 at 09:00; Stop 11/19/17 at 13:49; Status DC Metronidazole 100 ml @ 100 mls/hr 1X PREOP PRN IV economics faculty member to or; Start at 09:00; Stop 11/19/17 at 13:49; Status DC Bupivacaine HCl/ Epinephrine Bitart (Marcaine-Epi 0.5%-1:[id number]) 50 ml 1X ONCE IJ ; Start 11/19/17 at 10:15; Stop 11/19/17 at 13:49; Status DC Ephedrine Sulfate (ePHEDrine PF IN SALINE SYRINGE) 50 mg STK-MED ONCE IV ; Start 11/19/17 at 10:59; Stop 11/19/17 at 13:49; Status DC Glycopyrrolate (Robinul) 1 mg STK-MED ONCE .ROUTE ; Start 11/19/17 at 11:44; Stop 11/19/17 at 13:49; Status DC Neostigmine Methylsulfate (Neostigmine Methylsulfate) 5 mg STK-MED ONCE .ROUTE ; Start 11/19/17 at 11:45; Stop 11/19/17 at 13:49; Status DC Active Scripts Active Vitals/I & O Vital Sign - Last 24 Hours 11/19/17 11/19/17 11/19/17 11/19/17 12:11 12:26 12:26 12:41 Temp 98.5 98.5 Pulse 82 83 82 Resp 24 16 16 B/P (MAP) 157/73 174/81 162/89 Pulse Ox 97 93 94 O2 Delivery Simple Mask Nasal Cannula Nasal Cannula Nasal Cannula O2 Flow Rate 10 2 4 2 11/19/17 11/19/17 11/19/17 11/19/17 12:56 13:11 13:30 13:41 Temp 98.2 97.4 98.2 97.4 Pulse 77 74 76 76 Resp 14 16 B/P (MAP) 168/73 159/86 170/80 (110) 152/83 (106) Pulse Ox 94 92 93 95 O2 Delivery Nasal Cannula Nasal Cannula Nasal Cannula O2 Flow Rate 3 3 3.0 11/19/17 11/19/17 11/19/17 11/19/17 13:56 14:12 14:26 15:00 Temp 97.9 97.9 Pulse 76 79 79 85 Resp 16 B/P (MAP) 160/80 (106) 150/82 (104) 159/79 (105) 143/78 (99) Pulse Ox 96 95 93 94 O2 Delivery Room Air 11/19/17 11/19/17 11/19/17 11/19/17 15:26 19:15 19:45 23:15 Temp 98.1 98.2 98.1 98.2 Pulse 82 83 80 Resp 18 18 B/P (MAP) 138/74 (95) 152/82 (105) 140/78 (98) Pulse Ox 95 93 93 O2 Delivery Room Air Nasal Cannula Room Air O2 Flow Rate 3.0 11/20/17 11/20/17 11/20/17 11/20/17 03:29 07:00 08:00 11:19 Temp 97.9 98.4 98.6 97.9 98.4 98.6 Pulse 76 77 79 Resp 18 16 18 B/P (MAP) 121/82 (95) 173/83 (113) 162/78 (106) Pulse Ox 93 94 94 O2 Delivery Room Air Room Air Room Air Room Air Intake and Output 11/19/17 11/19/17 11/20/17 15:00 23:00 07:00 Intake Total 1739 ml Output Total 550 ml 450 ml 550 ml Balance -550 ml -450 ml 1189 ml Nutrition Consultation Dietary Evaluation: Recommendations by RD: Increase Calorie Intake, Protein supplementation Comments: rec adv diet with in next 24 -48hr consider PPN if unable to adv REC cardiac diet as goal Expected Outcomes/Goals: diet adv/ tolerance Interpretation of weight loss: >7.5% in 3 months Malnutrition Findings: Food and Nutrition Intake (Sev: <50% est energy req 5days Body Fat Depletion (Non Severe: Mild Depletion Weight Status: Overweight BOOKER LUCIA MD Nov 20, 2017 12:07
--- NOTE | 2017-11-20 13:21 | PDOC ---
PROGRESS NOTES Subjective Subjective doing ok, several stools recorded Objective Objective Vital Signs Date Time Temp Pulse Resp B/P (MAP) Pulse Ox O2 Delivery O2 Flow Rate FiO2 11/20/17 11:19 98.6 79 18 162/78 (106) 94 Room Air 98.6 11/19/17 19:45 3.0 Intake and Output 11/20/17 07:00 Intake Total 1739 ml Output Total 1550 ml Balance 189 ml Intake Oral 240 ml IV Total 1499 ml Output Urine Total 1550 ml # Voids 3 # Bowel Movements 4 Physical Exam Abdomen: Soft, No tenderness Assessment Assessment Problems Medical Problems: (1) Non-ST elevation myocardial infarction (NSTEMI) Status: Acute (2) UTI (urinary tract infection) Status: Acute Plan Plan of Care S/P release SBO, start clears in AM Comment Review of Relevant I have reviewed the following items opal (where applicable) has been applied. Labs Laboratory Tests Test 11/19/17 07:07 11/20/17 04:19 White Blood Count 4.1 x10^3/uL (4.0-11.0) Red Blood Count 4.51 x10^6/uL (3.50-5.40) Hemoglobin 13.9 g/dL (12.0-15.5) Hematocrit 41.8 % (36.0-47.0) Mean Corpuscular Volume 93 fL (79-100) Mean Corpuscular Hemoglobin 31 pg (25-35) Mean Corpuscular Hemoglobin Concent 33 g/dL (31-37) Red Cell Distribution Width 16.4 % (11.5-14.5) Platelet Count 212 x10^3/uL (140-400) Neutrophils (%) (Auto) 80 % (31-73) Lymphocytes (%) (Auto) 9 % (24-48) Monocytes (%) (Auto) 11 % (0-9) Eosinophils (%) (Auto) 0 % (0-3) Basophils (%) (Auto) 0 % (0-3) Neutrophils # (Auto) 3.3 x10^3uL (1.8-7.7) Lymphocytes # (Auto) 0.4 x10^3/uL (1.0-4.8) Monocytes # (Auto) 0.4 x10^3/uL (0.0-1.1) Eosinophils # (Auto) 0.0 x10^3/uL (0.0-0.7) Basophils # (Auto) 0.0 x10^3/uL (0.0-0.2) Sodium Level 142 mmol/L (136-145) 145 mmol/L (136-145) Potassium Level 4.0 mmol/L (3.5-5.1) 3.6 mmol/L (3.5-5.1) Chloride Level 107 mmol/L (98-107) 109 mmol/L (98-107) Carbon Dioxide Level 19 mmol/L (21-32) 19 mmol/L (21-32) Anion Gap 16 (6-14) 17 (6-14) Blood Urea Nitrogen 46 mg/dL (7-20) 32 mg/dL (7-20) Creatinine 1.5 mg/dL (0.6-1.0) 1.3 mg/dL (0.6-1.0) Estimated GFR (Cockcroft-Gault) 32.8 38.7 Glucose Level 110 mg/dL (70-99) 95 mg/dL (70-99) Calcium Level 8.9 mg/dL (8.5-10.1) 9.4 mg/dL (8.5-10.1) Laboratory Tests Test 11/20/17 04:19 Sodium Level 145 mmol/L (136-145) Potassium Level 3.6 mmol/L (3.5-5.1) Chloride Level 109 mmol/L (98-107) Carbon Dioxide Level 19 mmol/L (21-32) Anion Gap 17 (6-14) Blood Urea Nitrogen 32 mg/dL (7-20) Creatinine 1.3 mg/dL (0.6-1.0) Estimated GFR (Cockcroft-Gault) 38.7 Glucose Level 95 mg/dL (70-99) Calcium Level 9.4 mg/dL (8.5-10.1) Microbiology 11/17/17 Urine Culture - Preliminary, Resulted 11/17/17 Urine Culture Result 1 (AYSE) - Preliminary, Resulted Medications Current Medications Dicyclomine HCl (Bentyl) 20 mg 1X ONCE PO Last administered on 11/17/17at 11:56 ; Start 11/17/17 at 11:00; Stop 11/17/17 at 11:02; Status DC Pantoprazole Sodium (PROTONIX VIAL for IV PUSH) 40 mg 1X ONCE IVP Last administered on 11/17/17at 11:56; Start 11/17/17 at 11:00; Stop 11/17/17 at 11:02; Status DC Sodium Chloride 1,000 ml @ 1,000 mls/hr 1X ONCE IV Last administered on at 11:51; Start 11/17/17 at 11:00; Stop 11/17/17 at 11:59; Status DC Ondansetron HCl (Zofran) 4 mg 1X ONCE IV Last administered on 11/17/17at 11:53; Start 11/17/17 at 11:00; Stop 11/17/17 at 11:02; Status DC Ceftriaxone Sodium 50 ml @ 100 mls/hr 1X ONCE IV Last administered on at 12:03; Start 11/17/17 at 12:00; Stop 11/17/17 at 12:29; Status DC Ondansetron HCl (Zofran) 4 mg PRN Q8HRS PRN IV NAUSEA/VOMITING; Start 11/17/17 at 13:00; Stop 11/18/17 at 12:59; Status DC Morphine Sulfate (Morphine Sulfate) 4 mg PRN Q2HR PRN IV PAIN Last administered on 11/18/17at 02:31; Start 11/17/17 at 13:00; Stop 11/18/17 at 12:59 ; Status DC Sodium Chloride 1,000 ml @ 75 mls/hr 1X ONCE IV Last administered on at 15:51; Start 11/17/17 at 13:00; Stop 11/18/17 at 12:49; Status DC Prochlorperazine Edisylate (Compazine) 10 mg PRN TID PRN IV NAUSEA Last administered on 11/19/17at 05:32; Start 11/17/17 at 13:00 Benzocaine (Hurricaine One) 1 spray 1X ONCE MM Last administered on 11/17/17at 13:19; Start 11/17/17 at 13:15; Stop 11/17/17 at 13:16; Status DC Benzocaine (Hurricaine One) 1 spray 1X ONCE MM Last administered on 11/17/17at 16:23; Start 11/17/17 at 16:00; Stop 11/17/17 at 16:01; Status DC Iohexol (Omnipaque 300 Mg/ml) 400 ml 1X ONCE PO Last administered on at 09:33; Start 11/18/17 at 08:15; Stop 11/18/17 at 08:16; Status DC Info (CONTRAST GIVEN -- Rx MONITORING) 1 each PRN DAILY PRN MC SEE COMMENTS; Start 11/18/17 at 08:15; Stop 11/20/17 at 08:14; Status DC Ceftriaxone Sodium 1 gm/ Dextrose 50 ml @ 100 mls/hr Q24H IV ; Start 11/18/17 at 08:45; Status UNV Ceftriaxone Sodium (Rocephin) 1 gm Q24H IVP Last administered on 11/20/17at 08: 34; Start 11/18/17 at 09:00 Lactobacillus Rhamnosus (Culturelle) 1 cap BID PO Last administered on at 08:34; Start 11/18/17 at 09:00 Sodium Chloride 1,000 ml @ 100 mls/hr Q10H IV Last administered on 11/20/17at 06:20; Start 11/18/17 at 13:00 Ondansetron HCl (Zofran) 4 mg PRN Q6HRS PRN IV NAUSEA/VOMITING; Start 11/19/17 at 07:00; Stop 11/19/17 at 13:49; Status DC Fentanyl Citrate (Fentanyl 2ml Vial) 25 mcg PRN Q5MIN PRN IV MILD PAIN; Start 11/19/17 at 07:00; Stop 11/19/17 at 13:49; Status DC Fentanyl Citrate (Fentanyl 2ml Vial) 50 mcg PRN Q5MIN PRN IV MODERATE TO SEVERE PAIN; Start 11/19/17 at 07:00; Stop 11/19/17 at 13:49; Status DC Morphine Sulfate (Morphine Sulfate) 1 mg PRN Q10MIN PRN IV SEVERE PAIN; Start 11/19/17 at 07:00; Stop 11/19/17 at 13:49; Status DC Ringer's Solution 1,000 ml @ 30 mls/hr Q24H IV ; Start 11/19/17 at 07:00; Stop 11/19/17 at 13:49; Status DC Lidocaine HCl (Xylocaine-Mpf 1% 2ml Vial) 2 ml PRN 1X PRN ID PRIOR TO IV START ; Start 11/19/17 at 07:00; Stop 11/19/17 at 13:49; Status DC Hydromorphone HCl (Dilaudid) 0.5 mg PRN Q10MIN PRN IV SEV PAIN, Second choice; Start 11/19/17 at 07:00; Stop 11/19/17 at 13:49; Status DC Prochlorperazine Edisylate (Compazine) 5 mg PACU PRN PRN IV NAUSEA, MRX1; Start 11/19/17 at 07:00; Stop 11/19/17 at 13:49; Status DC Succinylcholine Chloride (Anectine) 200 mg STK-MED ONCE .ROUTE ; Start 11/19/17 at 08:46; Stop 11/19/17 at 13:49; Status DC Rocuronium [place] (Zemuron) 50 mg STK-MED ONCE .ROUTE ; Start 11/19/17 at 08:47 ; Stop 11/19/17 at 13:49; Status DC Fentanyl Citrate (Fentanyl 2ml Vial) 100 mcg STK-MED ONCE .ROUTE ; Start at 08:47; Stop 11/19/17 at 13:49; Status DC Desflurane (Suprane) 60 ml STK-MED ONCE IH ; Start 11/19/17 at 08:47; Stop 11/19 at 13:49; Status DC Phenylephrine HCl (PHENYLEPHRINE in 0.9% NACL PF) 1 mg STK-MED ONCE IV ; Start 11/19/17 at 08:47; Stop 11/19/17 at 13:49; Status DC Propofol 20 ml @ As Directed STK-MED ONCE IV ; Start 11/19/17 at 08:47; Stop 01/26 at 13:49; Status DC Dexamethasone Sodium Phosphate (Decadron) 20 mg STK-MED ONCE .ROUTE ; Start 01/26 at 08:47; Stop 11/19/17 at 13:49; Status DC Ondansetron HCl (Zofran) 4 mg STK-MED ONCE .ROUTE ; Start 11/19/17 at 08:47; Stop 11/19/17 at 13:49; Status DC Cefazolin Sodium/ Dextrose 50 ml @ 100 mls/hr 1X PREOP PRN IV chronic care nurse to or Last administered on 11/19/17at 10:46; Start 11/19/17 at 09:00; Stop 11/19/17 at 13:49; Status DC Metronidazole 100 ml @ 100 mls/hr 1X PREOP PRN IV chronic care nurse to or; Start at 09:00; Stop 11/19/17 at 13:49; Status DC Bupivacaine HCl/ Epinephrine Bitart (Marcaine-Epi 0.5%-1:[id number]) 50 ml 1X ONCE IJ ; Start 11/19/17 at 10:15; Stop 11/19/17 at 13:49; Status DC Ephedrine Sulfate (ePHEDrine PF IN SALINE SYRINGE) 50 mg STK-MED ONCE IV ; Start 11/19/17 at 10:59; Stop 11/19/17 at 13:49; Status DC Glycopyrrolate (Robinul) 1 mg STK-MED ONCE .ROUTE ; Start 11/19/17 at 11:44; Stop 11/19/17 at 13:49; Status DC Neostigmine Methylsulfate (Neostigmine Methylsulfate) 5 mg STK-MED ONCE .ROUTE ; Start 11/19/17 at 11:45; Stop 11/19/17 at 13:49; Status DC Active Scripts Active Vitals/I & O Vital Sign - Last 24 Hours 11/19/17 11/19/17 11/19/17 11/19/17 13:30 13:41 13:56 14:12 Temp 97.4 97.4 Pulse 76 76 76 79 B/P (MAP) 170/80 (110) 152/83 (106) 160/80 (106) 150/82 (104) Pulse Ox 93 95 96 95 O2 Delivery Nasal Cannula O2 Flow Rate 3.0 11/19/17 11/19/17 11/19/17 11/19/17 14:26 15:00 15:26 19:15 Temp 97.9 98.1 97.9 98.1 Pulse 79 85 82 83 Resp 16 18 B/P (MAP) 159/79 (105) 143/78 (99) 138/74 (95) 152/82 (105) Pulse Ox 93 94 95 93 O2 Delivery Room Air Room Air 11/19/17 11/19/17 11/20/17 11/20/17 19:45 23:15 03:29 07:00 Temp 98.2 97.9 98.4 98.2 97.9 98.4 Pulse 80 76 77 Resp 18 18 16 B/P (MAP) 140/78 (98) 121/82 (95) 173/83 (113) Pulse Ox 93 93 94 O2 Delivery Nasal Cannula Room Air Room Air Room Air O2 Flow Rate 3.0 11/20/17 11/20/17 08:00 11:19 Temp 98.6 98.6 Pulse 79 Resp 18 B/P (MAP) 162/78 (106) Pulse Ox 94 O2 Delivery Room Air Room Air Intake and Output 11/19/17 11/19/17 11/20/17 15:00 23:00 07:00 Intake Total 1739 ml Output Total 550 ml 450 ml 550 ml Balance -550 ml -450 ml 1189 ml Nutrition Consultation Dietary Evaluation: Recommendations by RD: Increase Calorie Intake, Protein supplementation Comments: rec adv diet with in next 24 -48hr consider PPN if unable to adv REC cardiac diet as goal Expected Outcomes/Goals: diet adv/ tolerance Interpretation of weight loss: >7.5% in 3 months Malnutrition Findings: Food and Nutrition Intake (Sev: <50% est energy req 5days Body Fat Depletion (Non Severe: Mild Depletion Weight Status: Overweight TYREE ALVAREZ MD Nov 20, 2017 13:21
[2017-11-20 14:56] VITALS: BP 142/81
[2017-11-20 19:00] VITALS: BP 143/82
[2017-11-20 23:00] VITALS: BP 155/66
--- NOTE | 2017-11-20 23:30 | PN ---
DATE: 11/20/2017 ADDENDUM ASSESSMENT: Acute kidney injury, which is improving throughout the hospitalization. WANDA ELY MD DR: MANISH/chinmay JOB#: [id number] / [id number]
--- NOTE | 2017-11-20 23:36 | PN ---
DATE: 11/20/2017 LOCATION: She is in room 404. SUBJECTIVE: The patient is awake and alert. She feels better after surgery, but is very weak and states she is unable to get up and walk by herself. She has passed a small amount of gas this morning, when I had seen her. She has had no further nausea or vomiting after laparoscopic lysis of adhesions and correction of her small-bowel obstruction yesterday by Surgery. OBJECTIVE: VITAL SIGNS: Stable. She is afebrile. GENERAL: She is awake and alert. CHEST: Clear. HEART: Regular. ABDOMEN: Soft. Expected postoperative tenderness. She remains on Rocephin for her urinary tract infection, with preliminary results showing greater than 100,000 gram-negative rods, but no ID or sensitivities to date. IMPRESSION: 1. Status post surgical correction of mechanical small-bowel obstruction. 2. Urinary tract infection with pending culture results. 3. Elevated troponin, which Cardiology feels is noncardiac. 4. Weakness. PLAN: We will continue current care. Continue Rocephin until results are back from urine culture. We will ask therapy to see her regarding the weakness and the patient may require correction at the time of discharge. WANDA ELY MD DR: MANISH/chinmay JOB#: [id number] / [id number]
[2017-11-21] MEDS: IV NORMAL SALINE 1000ML BAG 1,000 ML IV SCH ×3 (01:00→20:34)
[2017-11-21 03:00] VITALS: BP 166/91
[2017-11-21 07:00] VITALS: BP 178/86
[2017-11-21] MEDS: LACTOBACILLUS RHAMNOSUS GG 1 CAPSULE. PO SCH ×2 (10:03→20:33)
[2017-11-21] MEDS: cefTRIAXone IV Push 1 GM VIAL. IVP SCH (10:03)
[2017-11-21 11:00] VITALS: BP 167/96
--- NOTE | 2017-11-21 12:56 | PN ---
DATE: 11/21/2017 LOCATION: She is in room 404. SUBJECTIVE: The patient is awake and alert and is feeling better daily. Had several bowel movements yesterday. Still feels like she is quite weak. OBJECTIVE: VITAL SIGNS: Stable. She is afebrile. Blood pressures are somewhat elevated. CHEST: Clear. HEART: Regular. ABDOMEN: Soft. LABORATORY DATA: Urine culture shows E. coli pansensitive and we will switch her to p.o. Cipro today from [facility]. DIET: Advancement will be through Surgery. Because of her weakness, we will put in a correction evaluation today in addition. IMPRESSION: 1. Status post surgical release of small-bowel obstruction. 2. Elevated blood pressures. 3. Escherichia coli urinary tract infection. PLAN: long term evaluation and change to p.o. antibiotics. WANDA ELY MD DR: MANISH/chinmay JOB#: [id number] / [id number]
--- NOTE | 2017-11-21 13:31 | PDOC ---
THIEN MENJIVAR ANNEALER HELPER 11/21/17 1331: SURGICAL PROGRESS NOTE Subjective no nausea pain minimal some watery stools Vital Signs Vital Signs Date Time Temp Pulse Resp B/P (MAP) Pulse Ox O2 Delivery O2 Flow Rate FiO2 11/21/17 11:00 97.7 79 16 167/96 (119) 100 Room Air 3.0 97.7 I&O Intake and Output 11/21/17 07:00 Intake Total 1789 ml Output Total 500 ml Balance 1289 ml Intake Oral 100 ml IV Total 1689 ml Output Urine Total 500 ml # Bowel Movements 4 General: Alert, Oriented X3, Cooperative, No acute distress Abdomen: Soft, Other (ND, NTTP) Labs Laboratory Tests Test 11/20/17 04:19 Sodium Level 145 mmol/L (136-145) Potassium Level 3.6 mmol/L (3.5-5.1) Chloride Level 109 mmol/L (98-107) Carbon Dioxide Level 19 mmol/L (21-32) Anion Gap 17 (6-14) Blood Urea Nitrogen 32 mg/dL (7-20) Creatinine 1.3 mg/dL (0.6-1.0) Estimated GFR (Cockcroft-Gault) 38.7 Glucose Level 95 mg/dL (70-99) Calcium Level 9.4 mg/dL (8.5-10.1) Problem List Problems Medical Problems: (1) Non-ST elevation myocardial infarction (NSTEMI) Status: Acute (2) UTI (urinary tract infection) Status: Acute Assessment/Plan TYREE Tovar DC, MD 11/21/17 2105: SURGICAL PROGRESS NOTE Assessment/Plan Reviewed, agree with above THIEN MENJIVAR APRN Nov 21, 2017 13:31 TYREE ALVAREZ MD Nov 21, 2017 21:05
[2017-11-21] MEDS: CEFPODOXIME PROXETIL 100 MG TABLET. PO SCH ×2 (13:56→20:35)
[2017-11-21] MEDS: ENOXAPARIN 30 MG/0.3 ML SYRINGE. SQ SCH (14:24)
[2017-11-21 15:00] VITALS: BP 159/80
--- NOTE | 2017-11-21 18:14 | PDOC ---
PROGRESS NOTES Subjective Subjective No cardiac complaints Objective Objective Vital Signs Date Time Temp Pulse Resp B/P (MAP) Pulse Ox O2 Delivery O2 Flow Rate FiO2 11/21/17 15:00 97.6 93 16 159/80 (106) 90 Room Air 97.6 11/21/17 11:00 3.0 Intake and Output 11/21/17 07:00 Intake Total 1789 ml Output Total 500 ml Balance 1289 ml Intake Oral 100 ml IV Total 1689 ml Output Urine Total 500 ml # Bowel Movements 4 Assessment Assessment Patient stable cardiac-caballero. Her problems seem to be resolved by this surgery. We will sign off the case unless further cardiac problems develop. Thank you very much for asking me to participate in the care of this patient Comment Review of Relevant I have reviewed the following items opal (where applicable) has been applied. Labs Laboratory Tests Test 11/20/17 04:19 Sodium Level 145 mmol/L (136-145) Potassium Level 3.6 mmol/L (3.5-5.1) Chloride Level 109 mmol/L (98-107) Carbon Dioxide Level 19 mmol/L (21-32) Anion Gap 17 (6-14) Blood Urea Nitrogen 32 mg/dL (7-20) Creatinine 1.3 mg/dL (0.6-1.0) Estimated GFR (Cockcroft-Gault) 38.7 Glucose Level 95 mg/dL (70-99) Calcium Level 9.4 mg/dL (8.5-10.1) Microbiology 11/17/17 Urine Culture - Final, Complete 11/17/17 Urine Culture Result 1 (AYSE) - Final, Complete 11/17/17 Antimicrobic Susceptibility - Final, Complete Medications Current Medications Dicyclomine HCl (Bentyl) 20 mg 1X ONCE PO Last administered on 11/17/17at 11:56 ; Start 11/17/17 at 11:00; Stop 11/17/17 at 11:02; Status DC Pantoprazole Sodium (PROTONIX VIAL for IV PUSH) 40 mg 1X ONCE IVP Last administered on 11/17/17at 11:56; Start 11/17/17 at 11:00; Stop 11/17/17 at 11:02; Status DC Sodium Chloride 1,000 ml @ 1,000 mls/hr 1X ONCE IV Last administered on at 11:51; Start 11/17/17 at 11:00; Stop 11/17/17 at 11:59; Status DC Ondansetron HCl (Zofran) 4 mg 1X ONCE IV Last administered on 11/17/17at 11:53; Start 11/17/17 at 11:00; Stop 11/17/17 at 11:02; Status DC Ceftriaxone Sodium 50 ml @ 100 mls/hr 1X ONCE IV Last administered on at 12:03; Start 11/17/17 at 12:00; Stop 11/17/17 at 12:29; Status DC Ondansetron HCl (Zofran) 4 mg PRN Q8HRS PRN IV NAUSEA/VOMITING; Start 11/17/17 at 13:00; Stop 11/18/17 at 12:59; Status DC Morphine Sulfate (Morphine Sulfate) 4 mg PRN Q2HR PRN IV PAIN Last administered on 11/18/17at 02:31; Start 11/17/17 at 13:00; Stop 11/18/17 at 12:59 ; Status DC Sodium Chloride 1,000 ml @ 75 mls/hr 1X ONCE IV Last administered on at 15:51; Start 11/17/17 at 13:00; Stop 11/18/17 at 12:49; Status DC Prochlorperazine Edisylate (Compazine) 10 mg PRN TID PRN IV NAUSEA Last administered on 11/19/17at 05:32; Start 11/17/17 at 13:00 Benzocaine (Hurricaine One) 1 spray 1X ONCE MM Last administered on 11/17/17at 13:19; Start 11/17/17 at 13:15; Stop 11/17/17 at 13:16; Status DC Benzocaine (Hurricaine One) 1 spray 1X ONCE MM Last administered on 11/17/17at 16:23; Start 11/17/17 at 16:00; Stop 11/17/17 at 16:01; Status DC Iohexol (Omnipaque 300 Mg/ml) 400 ml 1X ONCE PO Last administered on at 09:33; Start 11/18/17 at 08:15; Stop 11/18/17 at 08:16; Status DC Info (CONTRAST GIVEN -- Rx MONITORING) 1 each PRN DAILY PRN MC SEE COMMENTS; Start 11/18/17 at 08:15; Stop 11/20/17 at 08:14; Status DC Ceftriaxone Sodium 1 gm/ Dextrose 50 ml @ 100 mls/hr Q24H IV ; Start 11/18/17 at 08:45; Status UNV Ceftriaxone Sodium (Rocephin) 1 gm Q24H IVP Last administered on 11/21/17at 10: 03; Start 11/18/17 at 09:00; Stop 11/21/17 at 11:13; Status DC Lactobacillus Rhamnosus (Culturelle) 1 cap BID PO Last administered on at 10:03; Start 11/18/17 at 09:00 Sodium Chloride 1,000 ml @ 100 mls/hr Q10H IV Last administered on 11/20/17at 17:07; Start 11/18/17 at 13:00 Ondansetron HCl (Zofran) 4 mg PRN Q6HRS PRN IV NAUSEA/VOMITING; Start 11/19/17 at 07:00; Stop 11/19/17 at 13:49; Status DC Fentanyl Citrate (Fentanyl 2ml Vial) 25 mcg PRN Q5MIN PRN IV MILD PAIN; Start 11/19/17 at 07:00; Stop 11/19/17 at 13:49; Status DC Fentanyl Citrate (Fentanyl 2ml Vial) 50 mcg PRN Q5MIN PRN IV MODERATE TO SEVERE PAIN; Start 11/19/17 at 07:00; Stop 11/19/17 at 13:49; Status DC Morphine Sulfate (Morphine Sulfate) 1 mg PRN Q10MIN PRN IV SEVERE PAIN; Start 11/19/17 at 07:00; Stop 11/19/17 at 13:49; Status DC Ringer's Solution 1,000 ml @ 30 mls/hr Q24H IV ; Start 11/19/17 at 07:00; Stop 11/19/17 at 13:49; Status DC Lidocaine HCl (Xylocaine-Mpf 1% 2ml Vial) 2 ml PRN 1X PRN ID PRIOR TO IV START ; Start 11/19/17 at 07:00; Stop 11/19/17 at 13:49; Status DC Hydromorphone HCl (Dilaudid) 0.5 mg PRN Q10MIN PRN IV SEV PAIN, Second choice; Start 11/19/17 at 07:00; Stop 11/19/17 at 13:49; Status DC Prochlorperazine Edisylate (Compazine) 5 mg PACU PRN PRN IV NAUSEA, MRX1; Start 11/19/17 at 07:00; Stop 11/19/17 at 13:49; Status DC Succinylcholine Chloride (Anectine) 200 mg STK-MED ONCE .ROUTE ; Start 11/19/17 at 08:46; Stop 11/19/17 at 13:49; Status DC Rocuronium [place] (Zemuron) 50 mg STK-MED ONCE .ROUTE ; Start 11/19/17 at 08:47 ; Stop 11/19/17 at 13:49; Status DC Fentanyl Citrate (Fentanyl 2ml Vial) 100 mcg STK-MED ONCE .ROUTE ; Start at 08:47; Stop 11/19/17 at 13:49; Status DC Desflurane (Suprane) 60 ml STK-MED ONCE IH ; Start 11/19/17 at 08:47; Stop 11/19 at 13:49; Status DC Phenylephrine HCl (PHENYLEPHRINE in 0.9% NACL PF) 1 mg STK-MED ONCE IV ; Start 11/19/17 at 08:47; Stop 11/19/17 at 13:49; Status DC Propofol 20 ml @ As Directed STK-MED ONCE IV ; Start 11/19/17 at 08:47; Stop 01/26 at 13:49; Status DC Dexamethasone Sodium Phosphate (Decadron) 20 mg STK-MED ONCE .ROUTE ; Start 01/26 at 08:47; Stop 11/19/17 at 13:49; Status DC Ondansetron HCl (Zofran) 4 mg STK-MED ONCE .ROUTE ; Start 11/19/17 at 08:47; Stop 11/19/17 at 13:49; Status DC Cefazolin Sodium/ Dextrose 50 ml @ 100 mls/hr 1X PREOP PRN IV body component engineer to or Last administered on 11/19/17at 10:46; Start 11/19/17 at 09:00; Stop 11/19/17 at 13:49; Status DC Metronidazole 100 ml @ 100 mls/hr 1X PREOP PRN IV body component engineer to or; Start at 09:00; Stop 11/19/17 at 13:49; Status DC Bupivacaine HCl/ Epinephrine Bitart (Marcaine-Epi 0.5%-1:[id number]) 50 ml 1X ONCE IJ ; Start 11/19/17 at 10:15; Stop 11/19/17 at 13:49; Status DC Ephedrine Sulfate (ePHEDrine PF IN SALINE SYRINGE) 50 mg STK-MED ONCE IV ; Start 11/19/17 at 10:59; Stop 11/19/17 at 13:49; Status DC Glycopyrrolate (Robinul) 1 mg STK-MED ONCE .ROUTE ; Start 11/19/17 at 11:44; Stop 11/19/17 at 13:49; Status DC Neostigmine Methylsulfate (Neostigmine Methylsulfate) 5 mg STK-MED ONCE .ROUTE ; Start 11/19/17 at 11:45; Stop 11/19/17 at 13:49; Status DC Cefpodoxime Proxetil (Vantin) 100 mg BID PO Last administered on 11/21/17at 13: 56; Start 11/21/17 at 12:00 Enoxaparin Sodium (Lovenox 30mg Syringe) 30 mg Q24H SQ Last administered on at 14:24; Start 11/21/17 at 14:00 Active Scripts Active Vitals/I & O Vital Sign - Last 24 Hours 11/20/17 11/20/17 11/20/17 11/21/17 19:00 20:02 23:00 03:00 Temp 98.5 98.2 98.0 98.5 98.2 98.0 Pulse 72 74 78 Resp 18 18 18 B/P (MAP) 143/82 (102) 155/66 (95) 166/91 (116) Pulse Ox 94 94 95 O2 Delivery Room Air Room Air Room Air Room Air 11/21/17 11/21/17 11/21/17 11/21/17 07:00 08:00 11:00 15:00 Temp 97.7 97.7 97.6 97.7 97.7 97.6 Pulse 72 79 93 Resp 16 16 16 B/P (MAP) 178/86 (116) 167/96 (119) 159/80 (106) Pulse Ox 94 100 90 O2 Delivery Room Air Room Air Room Air Room Air O2 Flow Rate 3.0 Intake and Output 11/20/17 11/20/17 11/21/17 15:00 23:00 07:00 Intake Total 100 ml 1689 ml Output Total 300 ml 200 ml Balance -200 ml 1489 ml Nutrition Consultation Dietary Evaluation: Recommendations by RD: Increase Calorie Intake, Protein supplementation Comments: rec adv diet with in next 24 -48hr consider PPN if unable to adv REC cardiac diet as goal Expected Outcomes/Goals: diet adv/ tolerance Interpretation of weight loss: >7.5% in 3 months Malnutrition Findings: Food and Nutrition Intake (Sev: <50% est energy req 5days Body Fat Depletion (Non Severe: Mild Depletion Weight Status: Overweight BOOKER LUCIA MD Nov 21, 2017 18:14
[2017-11-21 19:15] VITALS: BP 163/77
[2017-11-21 22:59] VITALS: BP 156/82
[2017-11-22 03:06] VITALS: BP 171/83
[2017-11-22 07:00] VITALS: BP 164/92
[2017-11-22] MEDS: IV NORMAL SALINE 1000ML BAG 1,000 ML IV SCH (07:00)
[2017-11-22] MEDS: LACTOBACILLUS RHAMNOSUS GG 1 CAPSULE. PO SCH ×2 (09:24→21:24)
[2017-11-22] MEDS: CEFPODOXIME PROXETIL 100 MG TABLET. PO SCH ×2 (09:24→21:24)
--- NOTE | 2017-11-22 10:16 | PN ---
DATE: 11/22/2017 LOCATION: Room 404. SUBJECTIVE: The patient is awake and alert, feeling better on a daily basis, is tolerating clear liquid, breakfasts as I am seeing her. States yesterday she kind of ached all over, but feels better today. OBJECTIVE: VITAL SIGNS: Stable. She is afebrile. GENERAL: She is awake and alert. CHEST: Clear. HEART: Regular. ABDOMEN: Soft and benign. She continues to have flatus and stools. IMPRESSION: 1. Status post laparoscopic correction of small bowel obstruction with lysis of adhesions. 2. Urinary tract infection with Escherichia coli, on p.o. antibiotics at this point. 3. Rheumatoid arthritis. PLAN: Diet advancement per surgery. At this point, I would feel comfortable with her going to jail when surgery is comfortable with the same. WANDA ELY MD DR: MANISH/chinmay JOB#: [id number] / [id number]
[2017-11-22 11:00] VITALS: BP 143/73
--- NOTE | 2017-11-22 13:46 | PDOC ---
THIEN MENJIVAR APRN 11/22/17 1346: SURGICAL PROGRESS NOTE Subjective tolerating diet wants more to eat no nausea Vital Signs Vital Signs Date Time Temp Pulse Resp B/P (MAP) Pulse Ox O2 Delivery O2 Flow Rate FiO2 11/22/17 11:00 98.3 71 16 143/73 (96) 94 Room Air 98.3 11/21/17 11:00 3.0 I&O Intake and Output 11/22/17 07:00 Intake Total 630 ml Output Total 651 ml Balance -21 ml Intake Oral 630 ml Output Urine Total 650 ml Urine/Stool Mix 1 ml # Voids 3 General: Alert, Oriented X3, Cooperative, No acute distress Abdomen: Soft, Other (ND, NTTP) Problem List Problems Medical Problems: (1) Non-ST elevation myocardial infarction (NSTEMI) Status: Acute (2) UTI (urinary tract infection) Status: Acute Assessment/Plan ANDREWS advance diet TYREE ALVAREZ MD 11/22/17 2001: SURGICAL PROGRESS NOTE Assessment/Plan Agree with above THIEN MENJIVAR APRN Nov 22, 2017 13:46 TYREE ALVAREZ MD Nov 22, 2017 20:01
[2017-11-22] MEDS: ENOXAPARIN 30 MG/0.3 ML SYRINGE. SQ SCH (14:58)
[2017-11-22 15:00] VITALS: BP 135/68
[2017-11-22 19:00] VITALS: BP 136/77
[2017-11-22 23:00] VITALS: BP 122/72
[2017-11-23 03:00] VITALS: BP 140/84
[2017-11-23 07:00] VITALS: BP 149/85
[2017-11-23] MEDS: LACTOBACILLUS RHAMNOSUS GG 1 CAPSULE. PO SCH ×2 (09:12→20:59)
[2017-11-23] MEDS: CEFPODOXIME PROXETIL 100 MG TABLET. PO SCH ×2 (09:12→20:59)
--- NOTE | 2017-11-23 09:45 | PDOC ---
SURGICAL PROGRESS NOTE Subjective tolerating diet bowels functioning Vital Signs Vital Signs Date Time Temp Pulse Resp B/P (MAP) Pulse Ox O2 Delivery O2 Flow Rate FiO2 11/23/17 07:00 97.3 77 149/85 (106) 96 Room Air 3.0 97.3 11/23/17 03:00 18 I&O Intake and Output 11/23/17 07:00 # Voids 5 # Bowel Movements 1 General: Alert, Oriented X3, Cooperative, No acute distress Abdomen: Soft, No tenderness Problem List Problems Medical Problems: (1) Non-ST elevation myocardial infarction (NSTEMI) Status: Acute (2) UTI (urinary tract infection) Status: Acute Assessment/Plan s/p ANDREWS stable surgically, dc planning THIEN MENJIVAR APRN Nov 23, 2017 09:45
[2017-11-23 11:41] VITALS: BP 170/94
[2017-11-23] MEDS: IBUPROFEN 400 MG TABLET. PO PRN (12:08)
[2017-11-23] MEDS: ENOXAPARIN 30 MG/0.3 ML SYRINGE. SQ SCH (14:24)
--- NOTE | 2017-11-23 14:30 | PN ---
DATE: 11/23/2017 LOCATION: She is in room 404. SUBJECTIVE: The patient is awake and alert, complains of aching all over consistent with her known rheumatological complaints. Abdomen overall is still continuing to feel better. OBJECTIVE: VITAL SIGNS: Stable. She is afebrile. GENERAL: She is awake and alert. CHEST: Clear. HEART: Regular. ABDOMEN: Soft and benign. She has ongoing bowel function and was tolerating progressively more diet. She has been approved for snf, but nursing tells me this morning that they cannot take her until Saturday as I was planning on likely discharging her to snf today. Surgery is following along and agree she is doing well. IMPRESSION: 1. Status post laparoscopic lysis of adhesions and release of small-bowel obstruction. 2. Rheumatoid arthritis with lots of aches and pains. 3. Urinary tract with Escherichia coli, on ongoing antibiotics. PLAN: At this point, would encourage increased activity as tolerated. snf when they can accept her. Nursing is requesting something for pain and at this point we will start her on an anti-inflammatory with close monitoring of renal function with the same and tramadol for p.r.n. pain. WANDA ELY MD DR: MANISH/chinmay JOB#: [id number] / [id number]
[2017-11-23 15:33] VITALS: BP 155/87
[2017-11-23 19:15] VITALS: BP 99/53
[2017-11-23] MEDS: traMADol 50 MG TABLET PO PRN (21:00)
[2017-11-23 23:09] VITALS: BP 133/66
[2017-11-24 03:04] VITALS: BP 147/86
[2017-11-24 07:00] VITALS: BP 116/70
[2017-11-24] MEDS: IBUPROFEN 400 MG TABLET. PO PRN ×2 (09:04→16:02)
--- NOTE | 2017-11-24 09:04 | PDOC ---
SURGICAL PROGRESS NOTE Subjective tolerating diet retention, required st cath Vital Signs Vital Signs Date Time Temp Pulse Resp B/P (MAP) Pulse Ox O2 Delivery O2 Flow Rate FiO2 11/24/17 07:00 98.2 80 16 116/70 (85) 96 Room Air 98.2 11/23/17 15:33 I&O Intake and Output 11/24/17 07:00 Intake Total 1400 ml Output Total 520 ml Balance 880 ml Intake Oral 1400 ml Output Urine Total 520 ml # Voids 1 General: Alert, Oriented X3, Cooperative, No acute distress Abdomen: Soft, No tenderness Problem List Problems Medical Problems: (1) Non-ST elevation myocardial infarction (NSTEMI) Status: Acute (2) UTI (urinary tract infection) Status: Acute Assessment/Plan supportive care, dc planning no surgical recs THIEN MENJIVAR APRN Nov 24, 2017 09:04
[2017-11-24] MEDS: LACTOBACILLUS RHAMNOSUS GG 1 CAPSULE. PO SCH ×2 (09:05→21:23)
[2017-11-24] MEDS: CEFPODOXIME PROXETIL 100 MG TABLET. PO SCH ×2 (09:05→21:23)
[2017-11-24 10:00] VITALS: BP 112/64
[2017-11-24 10:22] LABS: CALCIUM 8.2 mg/dL (8.5-10.1); CREATININE 0.9 mg/dL (0.6-1.0); GFR 59.1
[2017-11-24] MEDS ORDERED: POTASSIUM CHLORIDE 20 MEQ TABLET.ER. PO ONE (12:30)
[2017-11-24 15:00] VITALS: BP 95/47
[2017-11-24] MEDS: ENOXAPARIN 40 MG/0.4 ML SYRINGE. SQ SCH (16:02)
--- NOTE | 2017-11-24 19:07 | PN ---
DATE: 11/24/2017 SUBJECTIVE: The patient is awake, alert. Major complaint this morning is rheumatoid arthritic complaints of aching all over, particularly with the left knee. She is continuing to feel better from an abdominal and appetite standpoint. OBJECTIVE: VITAL SIGNS: Stable. She did have a temperature earlier today of 100.1. HEAD, EYES, EARS, NOSE AND THROAT: Unremarkable. NECK: Supple, without or thyromegaly. CHEST: Clear to auscultation and percussion. HEART: Regular rate and rhythm. ABDOMEN: Soft and benign. EXTREMITIES: On her left knee, she does have a significant effusion, is warm to the touch. Upon questioning, this is not unusual for her off and on at home and we have apparently given her some cortisone shots for the same in the office, which helped for a short period of time. IMPRESSION: 1. Status post small bowel obstruction with laparoscopic lysis of adhesions, released small bowel obstruction. 2. Rheumatoid arthritis with left knee effusion, likely related to the same. 3. Urinary tract infection with Escherichia coli with ongoing antibiotics. PLAN: Increase activity as tolerated. Ortho will be consulted for the left knee effusion. halfway is on tap with plans for tomorrow. ADDENDUM: Her lab this morning does show potassium of 3 and her creatinine is completely down to normal this morning at 0.9, so the ibuprofen does not at this point seem to be affecting anything. WANDA ELY MD DR: MANISH/chinmay JOB#: [id number] / [id number]
[2017-11-24 19:15] VITALS: BP 118/60
[2017-11-24] MEDS: traMADol 50 MG TABLET PO PRN (21:23)
[2017-11-24 23:17] VITALS: BP 117/56
[2017-11-25 03:00] VITALS: BP 129/62
[2017-11-25 04:16] LABS: CALCIUM 7.3 mg/dL (8.5-10.1); CREATININE 0.9 mg/dL (0.6-1.0); GFR 59.1
[2017-11-25 04:19] LABS: POTASSIUM 2.8 mmol/L (3.5-5.1)
[2017-11-25] MEDS ORDERED: POTASSIUM CHLORIDE 20 MEQ TABLET.ER. PO ONE (05:00)
[2017-11-25 07:00] VITALS: BP 125/72
[2017-11-25] MEDS: CEFPODOXIME PROXETIL 100 MG TABLET. PO SCH ×2 (08:11→21:05)
[2017-11-25] MEDS: IBUPROFEN 400 MG TABLET. PO PRN ×2 (08:11→21:05)
[2017-11-25] MEDS: LACTOBACILLUS RHAMNOSUS GG 1 CAPSULE. PO SCH ×2 (08:12→21:05)
--- NOTE | 2017-11-25 10:00 | PN ---
DATE: 11/25/2017 LOCATION: She is in room 404. SUBJECTIVE: The patient is awake, alert, still complaining of left knee pain, has no abdominal complaints at this point in time. OBJECTIVE: VITAL SIGNS: Stable. She is afebrile. CHEST: Clear. HEART: Regular. ABDOMEN: Benign. EXTREMITIES: Left knee continues to have a significant effusion. It is warm to the touch, and we are awaiting ortho opinion on this. She probably is ready to [facility] otherwise. IMPRESSION: 1. Status post small-bowel obstruction with laparoscopic lysis of adhesions and release of small-bowel obstruction. 2. Rheumatoid arthritis with left knee effusion, likely related to the same. 3. Urinary tract infection with E. coli with ongoing antibiotics. PLAN: Continue to immobilize, penitentiary after Ortho has seen and made definitive treatment or plans for the left knee. WANDA ELY MD DR: MANISH/chinmay JOB#: [id number] / [id number]
[2017-11-25 11:00] VITALS: BP 128/68
[2017-11-25] MEDS ORDERED: LIDOCAINE 1% PF 2 ML VIAL. ONE (11:30)
[2017-11-25] MEDS ORDERED: methylPREDNISolone ACETATE 80 MG/ML VIAL. ONE (11:30)
[2017-11-25] MEDS ORDERED: LIDOCAINE 1% PF 2 ML VIAL. INJ ONE (11:30)
[2017-11-25] MEDS ORDERED: methylPREDNISolone ACETATE 80 MG/ML VIAL. IM ONE (11:30)
--- NOTE | 2017-11-25 12:55 | PDOC2 ---
CONSULT Date of Consult Date of Consult DATE: 11/25/17 TIME: 12:51 Identification/Chief Complaint Chief Complaint Left knee pain Source Source: Chart review, Patient History of Present Illness Reason for Visit: Left knee pain. 87-year-old woman with admission for other reasons, now with left knee pain and swelling. She has a prior right total knee arthroplasty. Past Medical History Cardiovascular: CAD, [place] CENTRAL NERVOUS SYSTEM: Other Musculoskeletal: Other Rheumatologic: Rheumatoid arthritis Past Surgical History Past Surgical History: Cholecystectomy, Hysterectomy, Other (bladder lift) Family History Family History: Coronary Artery Disease, Other (noncontributory ) Social History No ALCOHOL: none Drugs: None Lives: Alone Current Problem List Problem List Problems Medical Problems: (1) Non-ST elevation myocardial infarction (NSTEMI) Status: Acute (2) UTI (urinary tract infection) Status: Acute Current Medications Current Medications Current Medications Dicyclomine HCl (Bentyl) 20 mg 1X ONCE PO Last administered on 11/17/17at 11:56 ; Start 11/17/17 at 11:00; Stop 11/17/17 at 11:02; Status DC Pantoprazole Sodium (PROTONIX VIAL for IV PUSH) 40 mg 1X ONCE IVP Last administered on 11/17/17at 11:56; Start 11/17/17 at 11:00; Stop 11/17/17 at 11:02; Status DC Sodium Chloride 1,000 ml @ 1,000 mls/hr 1X ONCE IV Last administered on at 11:51; Start 11/17/17 at 11:00; Stop 11/17/17 at 11:59; Status DC Ondansetron HCl (Zofran) 4 mg 1X ONCE IV Last administered on 11/17/17at 11:53; Start 11/17/17 at 11:00; Stop 11/17/17 at 11:02; Status DC Ceftriaxone Sodium 50 ml @ 100 mls/hr 1X ONCE IV Last administered on at 12:03; Start 11/17/17 at 12:00; Stop 11/17/17 at 12:29; Status DC Ondansetron HCl (Zofran) 4 mg PRN Q8HRS PRN IV NAUSEA/VOMITING; Start 11/17/17 at 13:00; Stop 11/18/17 at 12:59; Status DC Morphine Sulfate (Morphine Sulfate) 4 mg PRN Q2HR PRN IV PAIN Last administered on 11/18/17at 02:31; Start 11/17/17 at 13:00; Stop 11/18/17 at 12:59 ; Status DC Sodium Chloride 1,000 ml @ 75 mls/hr 1X ONCE IV Last administered on at 15:51; Start 11/17/17 at 13:00; Stop 11/18/17 at 12:49; Status DC Prochlorperazine Edisylate (Compazine) 10 mg PRN TID PRN IV NAUSEA Last administered on 11/19/17at 05:32; Start 11/17/17 at 13:00 Benzocaine (Hurricaine One) 1 spray 1X ONCE MM Last administered on 11/17/17at 13:19; Start 11/17/17 at 13:15; Stop 11/17/17 at 13:16; Status DC Benzocaine (Hurricaine One) 1 spray 1X ONCE MM Last administered on 11/17/17at 16:23; Start 11/17/17 at 16:00; Stop 11/17/17 at 16:01; Status DC Iohexol (Omnipaque 300 Mg/ml) 400 ml 1X ONCE PO Last administered on at 09:33; Start 11/18/17 at 08:15; Stop 11/18/17 at 08:16; Status DC Info (CONTRAST GIVEN -- Rx MONITORING) 1 each PRN DAILY PRN MC SEE COMMENTS; Start 11/18/17 at 08:15; Stop 11/20/17 at 08:14; Status DC Ceftriaxone Sodium 1 gm/ Dextrose 50 ml @ 100 mls/hr Q24H IV ; Start 11/18/17 at 08:45; Status UNV Ceftriaxone Sodium (Rocephin) 1 gm Q24H IVP Last administered on 11/21/17at 10: 03; Start 11/18/17 at 09:00; Stop 11/21/17 at 11:13; Status DC Lactobacillus Rhamnosus (Culturelle) 1 cap BID PO Last administered on at 08:12; Start 11/18/17 at 09:00 Sodium Chloride 1,000 ml @ 100 mls/hr Q10H IV Last administered on 11/21/17at 20:34; Start 11/18/17 at 13:00; Stop 11/22/17 at 15:25; Status DC Ondansetron HCl (Zofran) 4 mg PRN Q6HRS PRN IV NAUSEA/VOMITING; Start 11/19/17 at 07:00; Stop 11/19/17 at 13:49; Status DC Fentanyl Citrate (Fentanyl 2ml Vial) 25 mcg PRN Q5MIN PRN IV MILD PAIN; Start 11/19/17 at 07:00; Stop 11/19/17 at 13:49; Status DC Fentanyl Citrate (Fentanyl 2ml Vial) 50 mcg PRN Q5MIN PRN IV MODERATE TO SEVERE PAIN; Start 11/19/17 at 07:00; Stop 11/19/17 at 13:49; Status DC Morphine Sulfate (Morphine Sulfate) 1 mg PRN Q10MIN PRN IV SEVERE PAIN; Start 11/19/17 at 07:00; Stop 11/19/17 at 13:49; Status DC Ringer's Solution 1,000 ml @ 30 mls/hr Q24H IV ; Start 11/19/17 at 07:00; Stop 11/19/17 at 13:49; Status DC Lidocaine HCl (Xylocaine-Mpf 1% 2ml Vial) 2 ml PRN 1X PRN ID PRIOR TO IV START ; Start 11/19/17 at 07:00; Stop 11/19/17 at 13:49; Status DC Hydromorphone HCl (Dilaudid) 0.5 mg PRN Q10MIN PRN IV SEV PAIN, Second choice; Start 11/19/17 at 07:00; Stop 11/19/17 at 13:49; Status DC Prochlorperazine Edisylate (Compazine) 5 mg PACU PRN PRN IV NAUSEA, MRX1; Start 11/19/17 at 07:00; Stop 11/19/17 at 13:49; Status DC Succinylcholine Chloride (Anectine) 200 mg STK-MED ONCE .ROUTE ; Start 11/19/17 at 08:46; Stop 11/19/17 at 13:49; Status DC Rocuronium Dora (Zemuron) 50 mg STK-MED ONCE .ROUTE ; Start 11/19/17 at 08:47 ; Stop 11/19/17 at 13:49; Status DC Fentanyl Citrate (Fentanyl 2ml Vial) 100 mcg STK-MED ONCE .ROUTE ; Start at 08:47; Stop 11/19/17 at 13:49; Status DC Desflurane (Suprane) 60 ml STK-MED ONCE IH ; Start 11/19/17 at 08:47; Stop 11/19 at 13:49; Status DC Phenylephrine HCl (PHENYLEPHRINE in 0.9% NACL PF) 1 mg STK-MED ONCE IV ; Start 11/19/17 at 08:47; Stop 11/19/17 at 13:49; Status DC Propofol 20 ml @ As Directed STK-MED ONCE IV ; Start 11/19/17 at 08:47; Stop 01/26 at 13:49; Status DC Dexamethasone Sodium Phosphate (Decadron) 20 mg STK-MED ONCE .ROUTE ; Start 01/26 at 08:47; Stop 11/19/17 at 13:49; Status DC Ondansetron HCl (Zofran) 4 mg STK-MED ONCE .ROUTE ; Start 11/19/17 at 08:47; Stop 11/19/17 at 13:49; Status DC Cefazolin Sodium/ Dextrose 50 ml @ 100 mls/hr 1X PREOP PRN IV supervisor fabrication to or Last administered on 11/19/17at 10:46; Start 11/19/17 at 09:00; Stop 11/19/17 at 13:49; Status DC Metronidazole 100 ml @ 100 mls/hr 1X PREOP PRN IV supervisor fabrication to or; Start at 09:00; Stop 11/19/17 at 13:49; Status DC Bupivacaine HCl/ Epinephrine Bitart (Marcaine-Epi 0.5%-1:[id number]) 50 ml 1X ONCE IJ ; Start 11/19/17 at 10:15; Stop 11/19/17 at 13:49; Status DC Ephedrine Sulfate (ePHEDrine PF IN SALINE SYRINGE) 50 mg STK-MED ONCE IV ; Start 11/19/17 at 10:59; Stop 11/19/17 at 13:49; Status DC Glycopyrrolate (Robinul) 1 mg STK-MED ONCE .ROUTE ; Start 11/19/17 at 11:44; Stop 11/19/17 at 13:49; Status DC Neostigmine Methylsulfate (Neostigmine Methylsulfate) 5 mg STK-MED ONCE .ROUTE ; Start 11/19/17 at 11:45; Stop 11/19/17 at 13:49; Status DC Cefpodoxime Proxetil (Vantin) 100 mg BID PO Last administered on 11/25/17at 08: 11; Start 11/21/17 at 12:00 Enoxaparin Sodium (Lovenox 30mg Syringe) 30 mg Q24H SQ Last administered on at 14:24; Start 11/21/17 at 14:00; Stop 11/24/17 at 15:01; Status DC Ibuprofen (Motrin) 400 mg PRN Q6HRS PRN PO INFLAMMATION Last administered on at 08:11; Start 11/23/17 at 11:45 Tramadol HCl (Ultram) 50 mg PRN Q6HRS PRN PO PAIN Last administered on at 21:23; Start 11/23/17 at 11:45 Potassium Chloride (Klor-Con) 20 meq 1X ONCE PO Last administered on at 16:01; Start 11/24/17 at 12:30; Stop 11/24/17 at 12:31; Status DC Enoxaparin Sodium (Lovenox 40mg Syringe) 40 mg Q24H SQ Last administered on at 16:02; Start 11/24/17 at 16:00 Potassium Chloride (Klor-Con) 40 meq 1X ONCE PO Last administered on at 05:24; Start 11/25/17 at 05:00; Stop 11/25/17 at 05:01; Status DC Lidocaine HCl (Xylocaine-Mpf 1% 2ml Vial) 2 ml 1X ONCE INJ ; Start 11/25/17 at 11:30; Stop 11/25/17 at 11:34; Status DC Methylprednisolone Acetate (DEPO-Medrol 80MG VIAL) 80 mg 1X ONCE IM ; Start at 11:30; Stop 11/25/17 at 11:34; Status DC Active Scripts Active Allergies Allergies: Coded Allergies: celecoxib (Verified Allergy, Severe, Hives, 11/23/17) Has tolerated ketorolac and aspirin Pt stated she got red hives upon taking this medication Sulfa (Sulfonamide Antibiotics) (Verified Allergy, Intermediate, Rash, 01/26) ROS General: No: Night Sweats HEENT: No: Heacaches Cardiovascular: No Chest Pain Genitourinary: No Dysuria Musculoskeletal: Yes Joint Pain, Yes Swelling In: (left knee) Physical Exam General: Alert, Cooperative HEENT: Atraumatic Lungs: Normal air movement Heart: Regular rate Abdomen: Soft, No tenderness Extremities: No cyanosis, Other (large left knee effusion. Valgus alignment of the knee. Trace warmth, no erythema or severe tenderness or evidence of septic knee joint. Distal neurovascular function is normal.) Skin: No rashes, No breakdown, No significant lesion Neuro: Normal speech, Normal tone, Sensation intact MUSCULOSKELETAL: Abnormal exam of left (knee as above) Vitals VITALS Vital Signs Date Time Temp Pulse Resp B/P (MAP) Pulse Ox O2 Delivery O2 Flow Rate FiO2 11/25/17 11:00 97.9 71 16 128/68 (88) 95 Room Air 97.9 11/24/17 21:23 3.0 Labs Labs Laboratory Tests Test 11/24/17 09:33 11/25/17 03:10 Sodium Level 135 mmol/L (136-145) 137 mmol/L (136-145) Potassium Level 3.0 mmol/L (3.5-5.1) 2.8 mmol/L (3.5-5.1) Chloride Level 101 mmol/L (98-107) 105 mmol/L (98-107) Carbon Dioxide Level 24 mmol/L (21-32) 23 mmol/L (21-32) Anion Gap 10 (6-14) 9 (6-14) Blood Urea Nitrogen 10 mg/dL (7-20) 12 mg/dL (7-20) Creatinine 0.9 mg/dL (0.6-1.0) 0.9 mg/dL (0.6-1.0) Estimated GFR (Cockcroft-Gault) 59.1 59.1 Glucose Level 139 mg/dL (70-99) 99 mg/dL (70-99) Calcium Level 8.2 mg/dL (8.5-10.1) 7.3 mg/dL (8.5-10.1) Laboratory Tests Test 11/25/17 03:10 Sodium Level 137 mmol/L (136-145) Potassium Level 2.8 mmol/L (3.5-5.1) Chloride Level 105 mmol/L (98-107) Carbon Dioxide Level 23 mmol/L (21-32) Anion Gap 9 (6-14) Blood Urea Nitrogen 12 mg/dL (7-20) Creatinine 0.9 mg/dL (0.6-1.0) Estimated GFR (Cockcroft-Gault) 59.1 Glucose Level 99 mg/dL (70-99) Calcium Level 7.3 mg/dL (8.5-10.1) Images Images 2 views of the left knee show severe degenerative changes and osteoarthritis with narrowing, sclerosis, and osteophyte formation. Assessment/Plan Assessment/Plan Left knee effusion. Left knee osteoarthritis. I recommended aspiration and corticosteroid injection. She agreed. The knee skin was prepared with chlorhexidine swab. 1% lidocaine local anesthetic was used in the skin. Under sterile technique, a 16-gauge needle and 30 mL syringe were used, and I drained 115 mL of slightly cloudy inflammatory fluid with no evidence of infection. Possible gout or pseudogout based on the fluid gross appearance. I injected 80 mL's of Depo-Medrol into the knee joint under sterile technique. The patient tolerated the procedure well. A Band-Aid was placed. NATALEE JACOB MD Nov 25, 2017 12:55
--- NOTE | 2017-11-25 13:01 | PDOC ---
SURGICAL PROGRESS NOTE Subjective tolerating diet more weakness Vital Signs Vital Signs Date Time Temp Pulse Resp B/P (MAP) Pulse Ox O2 Delivery O2 Flow Rate FiO2 11/25/17 11:00 97.9 71 16 128/68 (88) 95 Room Air 97.9 11/24/17 21:23 3.0 I&O Intake and Output 11/25/17 07:00 Intake Total 680 ml Output Total 500 ml Balance 180 ml Intake Oral 680 ml Output Urine Total 500 ml General: Alert, Oriented X3, Cooperative, No acute distress Abdomen: Soft, No tenderness Labs Laboratory Tests Test 11/24/17 09:33 11/25/17 03:10 Sodium Level 135 mmol/L (136-145) 137 mmol/L (136-145) Potassium Level 3.0 mmol/L (3.5-5.1) 2.8 mmol/L (3.5-5.1) Chloride Level 101 mmol/L (98-107) 105 mmol/L (98-107) Carbon Dioxide Level 24 mmol/L (21-32) 23 mmol/L (21-32) Anion Gap 10 (6-14) 9 (6-14) Blood Urea Nitrogen 10 mg/dL (7-20) 12 mg/dL (7-20) Creatinine 0.9 mg/dL (0.6-1.0) 0.9 mg/dL (0.6-1.0) Estimated GFR (Cockcroft-Gault) 59.1 59.1 Glucose Level 139 mg/dL (70-99) 99 mg/dL (70-99) Calcium Level 8.2 mg/dL (8.5-10.1) 7.3 mg/dL (8.5-10.1) Laboratory Tests Test 11/25/17 03:10 Sodium Level 137 mmol/L (136-145) Potassium Level 2.8 mmol/L (3.5-5.1) Chloride Level 105 mmol/L (98-107) Carbon Dioxide Level 23 mmol/L (21-32) Anion Gap 9 (6-14) Blood Urea Nitrogen 12 mg/dL (7-20) Creatinine 0.9 mg/dL (0.6-1.0) Estimated GFR (Cockcroft-Gault) 59.1 Glucose Level 99 mg/dL (70-99) Calcium Level 7.3 mg/dL (8.5-10.1) Problem List Problems Medical Problems: (1) Non-ST elevation myocardial infarction (NSTEMI) Status: Acute (2) UTI (urinary tract infection) Status: Acute Assessment/Plan no further surgical needs available as needed THIEN MENJIVAR APRN Nov 25, 2017 13:01
[2017-11-25 15:00] VITALS: BP 136/71
--- NOTE | 2017-11-25 16:52 | RAD ---
EXAM: AP and lateral views of the left knee DATE: 11/25/2017 11:30 AM INDICATION: LEFT KNEE PAIN COMPARISON: 09/21/2015 FINDINGS: Decreased bone mineral density. Large left knee joint effusion. No definite evidence for acute fracture or dislocation. Chondrocalcinosis is seen. Smooth depression of the lateral tibial plateau is essentially stable to 09/21/2015. No definite erosions or change seen. Tricompartmental osteophytes are noted. Joint body seen at the posterior left knee joint line. IMPRESSION: 1. Left knee joint osteoarthritis. 2. Large left knee joint effusion with associated joint body. 3. Decreased bone mineral density. 4. Chronic deformity lateral tibial plateau without evidence of acute fracture or dislocation. Electronically signed by: Gabe Chaudhry MD (11/25/2017 4:49 PM) [id number]
[2017-11-25] MEDS: ENOXAPARIN 40 MG/0.4 ML SYRINGE. SQ SCH (17:24)
[2017-11-25 19:00] VITALS: BP 122/65
[2017-11-25 23:00] VITALS: BP 121/73
[2017-11-26 03:00] VITALS: BP 132/76
[2017-11-26 07:00] VITALS: BP 139/75
[2017-11-26] MEDS: LACTOBACILLUS RHAMNOSUS GG 1 CAPSULE. PO SCH (09:39)
[2017-11-26] MEDS: CEFPODOXIME PROXETIL 100 MG TABLET. PO SCH (09:39)
[2017-11-26 11:57] VITALS: BP 126/71
--- NOTE | 2017-11-27 19:40 | DS ---
DATE OF DISCHARGE: 11/26/2017 PRIMARY DIAGNOSIS: Mechanical small bowel obstruction. ADDITIONAL DIAGNOSES: Rheumatoid arthritis with inflammation of her left knee with difficulty walking, generalized weakness following prolonged illness, urinary tract infection with Escherichia coli. CHIEF COMPLAINT AND HISTORY OF PRESENT ILLNESS: This is an 87-year-old female admitted on the day of admission with abdominal pain and small bowel obstruction. SUMMARY OF STAY: The patient was treated expectantly with initially NG tube, which she pulled on 2 occasions. She did not improve over several days on surgery for her laparoscopic lysis of adhesions and release of the small bowel obstruction during the stay. She did well following that from an abdominal standpoint, was found to have E. coli in her urine and treated with antibiotics throughout the stay. Developed left knee effusion, which was also injected towards the end of the stay. It was felt that she should go to [facility] at the time of discharge because of the weakness and this was accomplished on the day of dismissal. DISPOSITION: The patient is discharged to [facility]. Please see orders. Regarding regular diet. ACTIVITY: As tolerated. PT and OT to evaluate and treat. DISCHARGE MEDICATIONS: Listed on the med rec and have been addressed. WANDA ELY MD DR: MANISH/chinmay JOB#: [id number] / [id number]
== END 2017-11-26 13:00 | DRG 335 ==
LOC: ER 10:39 → 4 NORTH 12:30
PROVIDERS: ADMIT Family Medicine; ATTEND Family Medicine
PROC: 0DNU4ZZ Release Omentum, Percutaneous Endoscopic Approach (ICD-10-PCS; principal; 2017-11-19 10:30)
PROC: 3E0U33Z Introduction of Anti-inflammatory into Joints, Percutaneous Approach (ICD-10-PCS; 2017-11-25)
DX: K56.51 Intestinal adhesions [bands], with partial obstruction (principal); I21.4 Non-ST elevation (NSTEMI) myocardial infarction; N17.1 Acute kidney failure with acute cortical necrosis; N39.0 Urinary tract infection, site not specified; B96.20 Unspecified Escherichia coli [E. coli] as the cause of diseases classified elsewhere; E86.1 Hypovolemia; I10 Essential (primary) hypertension; I25.10 Atherosclerotic heart disease of native coronary artery without angina pectoris; K44.9 Diaphragmatic hernia without obstruction or gangrene; M06.9 Rheumatoid arthritis, unspecified; Z96.651 Presence of right artificial knee joint; M17.12 Unilateral primary osteoarthritis, left knee; Z53.29 Procedure and treatment not carried out because of patient's decision for other reasons; Z82.49 Family history of ischemic heart disease and other diseases of the circulatory system; Z90.710 Acquired absence of both cervix and uterus; Z79.899 Other long term (current) drug therapy; I25.2 Old myocardial infarction; Z88.8 Allergy status to other drugs, medicaments and biological substances; Z88.2 Allergy status to sulfonamides; Z90.49 Acquired absence of other specified parts of digestive tract
CPT/HCPCS: 36415; 51701; 73502; 73560; 74018; 74022; 74176; 74250; 80048; 80053; 80307; 81001; 82553; 83605; 83690; 83735; 83880; 84484; 85007; 85025; 87086; 87186; 93005; 96365; 96375; C9113; J0330; J0690; J0696; J0780; J1040; J1100; J1650; J2270; J2370; J2405; J2704; J2710; J3010; J3490; J7030; J7120; Q9967; 97116; 97530; 97535; 99285-25; G0479